=== PATIENT | male | born 1980 | race African-American/Black ===

== ENCOUNTER 2016-12-07 15:17 | Emergency (ER) | payer MEDICAID, OTHER ==
[~2016-12-07] VITALS: Ht 180.3 cm; Wt 149.0 kg
[~2016-12-07 15:17] MED LIST: BUPR100T4 PO; CLON0.1T PO; CYAN1000P IM; DICL1GEL TOPICAL; GLUC4CHW CHEW; LANC30MI; LISI10TA3 PO; LITH300T PO; LURA40 PO; LYRI150C PO; MEDICAL COMPRES1 MIS; METHI10 PO; ONETKIT; ONETTES4; PERC7.5T13 PO; POTA-163 PO; TIZA4CAP3 PO; TOPA50TA7 PO; TRAZ100T6 PO; ZOLO100T PO
[2016-12-07 15:21] VITALS: BP 157/76; PULSE 72; RESP 15; TEMP 99.3; O2SAT 97
--- NOTE | 2016-12-07 16:16 | PD ---
HPI Chief Complaint: Pain: Acute or Chronic Time Seen by Provider: 16:00 Travel History International Travel<30 days: No Contact w/Intl Traveler<30days: No Traveled to known affect area: No History of Present Illness HPI 36-year-old male with chief complaint of right-sided sciatica pain X 7 days. Patient is currently in pain management. He reports he ran out of his Percocet approximately one weeks ago. He reports the pain is similar to his chronic pain. He is here for pain control. He reports the pain is chronic, starting in the right hip radiating down the leg. No aggravating or alleviating factors. Severity 10/29. He denies incontinence, fever chills, numbness/ weakness/tingling in the extremity. PFSH Past Medical History Arthritis: Yes Asthma: Yes Autoimmune Disease: No Blood Disorders: No Bipolar Disorder: Yes Anxiety: Yes Depression: Yes Heart Rhythm Problems: No Cancer: No Cardiac Catheterization: No Cardiovascular Problems: Yes (HEART MURMUR) Diminished Hearing: No Endocrine: Yes (HYPOGLYCEMIA) Fibromyalgia: Yes Gastrointestinal Disorders: Yes GERD: Yes Genitourinary: No Headaches: Yes Hypertension: Yes Musculoskeletal: Yes (FIBROMYALGIA, sees pain management) Neurologic: Yes Psychiatric: Yes (PTSD) Respiratory: Yes Immunizations Current: No Migraines: Yes Schizophrenia: Yes Seizures: No Sleep Apnea: Yes Ulcer: Yes Past Surgical History Abdominal Surgery: Yes (GASTRIC SLEEVE 04/03) Cholecystectomy: Yes Coronary Artery Bypass Graft: No Oral Surgery: Yes (T&A) Tonsillectomy: Yes Other Surgery: Yes (gastric bypass) Social History Alcohol Use: Yes ("EVERY COUPLE MONTHS") Tobacco Use: No Substance Use: No Allergies-Medications (Allergen,Severity, Reaction): Coded Allergies: lactose (Unverified Adverse Reaction, Unknown, Constipation, 12/07/16) Per patient. Reported Meds & Prescriptions Reported Meds & Active Scripts Active Lyrica (Pregabalin) 150 Mg Cap 150 Mg PO TID Methimazole 10 Mg Tab 10 Mg PO TID Cyanocobalamin Inj (Cyanocobalamin) 1,000 Mcg/Ml Inj 1,000 Mcg IM Q30D Reported Percocet (Oxycodone-Acetaminophen) 7.5-325 mg Tab 1 Tab PO BID PRN Trazodone (Trazodone HCl) 100 Mg Tablet 100 Mg PO DAILY Clonidine (Clonidine HCl) 0.1 Mg Tab 0.1 Mg PO DAILY Rx'ed by Psychiatry Review of Systems Except as stated in HPI: all other systems reviewed are Neg Physical Exam Narrative GENERAL: Well-nourished, well-developed patient. SKIN: Focused skin assessment warm/dry. HEAD: Normocephalic. EYES: No scleral icterus. No injection or drainage. NECK: Supple, trachea midline. No JVD or lymphadenopathy. CARDIOVASCULAR: Regular rate and rhythm without murmurs, gallops, or rubs. RESPIRATORY: Breath sounds equal bilaterally. No accessory muscle use. GASTROINTESTINAL: Abdomen soft, non-tender, nondistended. MUSCULOSKELETAL: No cyanosis, or edema. 5 out of 5 strength in lower extremities. Normal sensation. Dorsiflex and plantar flex intact. BACK: Nontender without obvious deformity. No CVA tenderness. Negative straight leg raise Data Data Last Documented VS Vital Signs Date Time Temp Pulse Resp B/P Pulse Ox O2 Delivery O2 Flow Rate FiO2 12/07/16 15:21 99.3 72 15 157/76 97 MDM Medical Decision Making Medical Screen Exam Complete: Yes Emergency Medical Condition: Yes Differential Diagnosis Sciatica, lumbar radiculopathy, acute on chronic pain Narrative Course 36-year-old male with chief complaint of right-sided sciatica pain X 7 days. Patient is currently in pain management. He reports he ran out of his Percocet approximately one weeks ago. He reports the pain is similar to his chronic pain. He is here for pain control. He denies incontinence, fever chills, numbness/weakness/tingling in the extremity. Patient's physical exam is reassuring. He will be given a shot of Toradol. Instructed to follow-up management doctor. Diagnosis Primary Impression: Sciatic nerve pain Qualified Code: M54.31 - Right sciatic nerve pain Referrals: Pain Management Additional Instructions: Take medications as prescribed. : Follow-up with her pain management clinic. Disposition: 01 DISCHARGE HOME Condition: Stable RodneyTameka ESCAMILLA Dec 07, 2016 16:16
[2016-12-07] MEDS ORDERED: KETOROLAC TROMETHAMINE 60 MG/2 ML (IM) VIAL IM ONE (16:30)
[2017-01-02] MEDS ORDERED: MEDR4PAK PO (10:33)
[2017-01-02] MEDS ORDERED: GABA300C5 PO (10:33)
== END 2016-12-07 16:50 | disposition home or self-care (01) ==
LOC: PHEFT 15:17
DX: M54.31 Sciatica, right side (principal); I10 Essential (primary) hypertension; G47.30 Sleep apnea, unspecified; Z87.39 Personal history of other diseases of the musculoskeletal system and connective tissue; Z87.09 Personal history of other diseases of the respiratory system; Z86.59 Personal history of other mental and behavioral disorders; Z86.79 Personal history of other diseases of the circulatory system; Z86.39 Personal history of other endocrine, nutritional and metabolic disease; Z87.19 Personal history of other diseases of the digestive system; Z86.69 Personal history of other diseases of the nervous system and sense organs
CPT/HCPCS: 96372; 99284; J1885

== ENCOUNTER 2016-12-29 11:53 | Observation (INO) | payer MEDICAID, OTHER ==
[~2016-12-29] VITALS: Ht 180.3 cm; Wt 157.4 kg
[~2016-12-29 11:53] MED LIST changes: -BUPR100T4 PO; -DICL1GEL TOPICAL; -GLUC4CHW CHEW; -LANC30MI; -LISI10TA3 PO; -LITH300T PO; -LURA40 PO; -MEDICAL COMPRES1 MIS; -ONETKIT; -ONETTES4; -POTA-163 PO; -TIZA4CAP3 PO; -TOPA50TA7 PO; -ZOLO100T PO
[2016-12-29 12:14] VITALS: BP 141/75; PULSE 67; RESP 14; TEMP 98.1; O2SAT 99
[2016-12-29] MEDS ORDERED: SODIUM CHLORIDE 0.9% FLUSH 10 ML FLUSH IVF PRN (13:00)
[2016-12-29] MEDS ORDERED: ACETAMINOPHEN/HYDROcodone 325 MG/5 MG TAB PO ONE (13:00)
[2016-12-29] MEDS ORDERED: ASPIRIN 81 MG CHEW TAB PO ONE (13:00)
--- NOTE | 2016-12-29 13:06 | PD ---
HPI Chief Complaint: Pain: Acute or Chronic Time Seen by Provider: 12:49 Travel History International Travel<30 days: No Contact w/Intl Traveler<30days: No Traveled to known affect area: No History of Present Illness HPI This patient complains of chest pain. Duration 3 days. Severity is moderate. Location is left in center chest as a pressure and aching. It can last 2 hours and resolved. Nonexertional. Patient has chronic right sided sciatica but no documented cardiac history. He had a negative stress test years ago but nothing recent. He has a morbidly obese hypertensive man who says his mother had heart attack in her 30s. No smoking. No alleviating factors. PFSH Past Medical History Arthritis: Yes Asthma: Yes Autoimmune Disease: No Blood Disorders: No Bipolar Disorder: Yes Anxiety: Yes Depression: Yes Heart Rhythm Problems: No Cancer: No Cardiac Catheterization: No Cardiovascular Problems: Yes (HEART MURMUR) Diminished Hearing: No Endocrine: Yes (HYPOGLYCEMIA) Fibromyalgia: Yes Gastrointestinal Disorders: Yes GERD: Yes Genitourinary: No Headaches: Yes Hypertension: Yes Implanted Vascular Access Dvce: No Musculoskeletal: Yes (FIBROMYALGIA, sees pain management) Neurologic: Yes Psychiatric: Yes (PTSD) Reproductive: No Respiratory: Yes Immunizations Current: No Migraines: Yes Schizophrenia: Yes Seizures: No Sleep Apnea: Yes Ulcer: Yes Influenza Vaccination: No Past Surgical History Abdominal Surgery: Yes (GASTRIC SLEEVE 04/03) Cholecystectomy: Yes Coronary Artery Bypass Graft: No Oral Surgery: Yes (T&A) Tonsillectomy: Yes Other Surgery: Yes (gastric bypass) Family History Family Myocardial Infarction: No Social History Alcohol Use: Yes ("EVERY COUPLE MONTHS") Tobacco Use: No Substance Use: No Allergies-Medications (Allergen,Severity, Reaction): Coded Allergies: lactose (Unverified Adverse Reaction, Unknown, Constipation, 12/07/16) Per patient. Reported Meds & Prescriptions Reported Meds & Active Scripts Active Lyrica (Pregabalin) 150 Mg Cap 150 Mg PO TID Methimazole 10 Mg Tab 10 Mg PO TID Cyanocobalamin Inj (Cyanocobalamin) 1,000 Mcg/Ml Inj 1,000 Mcg IM Q30D Reported Percocet (Oxycodone-Acetaminophen) 7.5-325 mg Tab 1 Tab PO BID PRN Trazodone (Trazodone HCl) 100 Mg Tablet 100 Mg PO DAILY Clonidine (Clonidine HCl) 0.1 Mg Tab 0.1 Mg PO DAILY Rx'ed by Psychiatry Review of Systems General / Constitutional: No: Fever Eyes: No: Visual changes HENT: No: Headaches Cardiovascular: Positive: Chest Pain or Discomfort Respiratory: No: Shortness of Breath Gastrointestinal: No: Abdominal Pain Genitourinary: No: Dysuria Musculoskeletal: Positive: Pain Skin: No Rash Neurologic: No: Weakness Psychiatric: No: Depression Endocrine: No: Polydipsia Hematologic/Lymphatic: No: Easy Bruising Physical Exam Narrative GENERAL: Well-nourished, well-developed patient in no apparent distress. SKIN: Focused skin assessment reveals no rash and nodules. Skin is Warm and dry. HEAD: Atraumatic. Normocephalic. EYES: Pupils equal and round. No scleral icterus. No injection or drainage. ENT: No nasal bleeding or discharge. Mucous membranes pink and moist. NECK: Trachea midline. No JVD. CARDIOVASCULAR: Regular rate and rhythm. No murmur appreciated. RESPIRATORY: No accessory muscle use. Clear to auscultation. Breath sounds equal bilaterally. GASTROINTESTINAL: Abdomen soft, morbidly obese non-tender, nondistended. Hepatic and splenic margins not palpable. MUSCULOSKELETAL: No obvious deformities. No clubbing. No cyanosis. No edema. Nontender chest wall NEUROLOGICAL: Awake and alert. No obvious cranial nerve deficits. Motor grossly within normal limits. Normal speech. PSYCHIATRIC: Appropriate mood and affect; insight and judgment normal. Data Data Last Documented VS Vital Signs Date Time Temp Pulse Resp B/P (MAP) Pulse Ox O2 Delivery O2 Flow Rate FiO2 12/29/16 12:14 98.1 67 14 141/75 (97) 99 Room Air Orders Orders Electrocardiogram (12/29/16 13:00) Basic Metabolic Panel (Bmp) (12/29/16 13:00) Ckmb (Isoenzyme) Profile (12/29/16 13:00) Complete Blood Count With Diff (12/29/16 13:00) Prothrombin Time / Inr (Pt) (12/29/16 13:00) Act Partial Throm Time (Ptt) (12/29/16 13:00) Troponin I (12/29/16 13:00) Chest, Single Ap (12/29/16 13:00) Ecg Monitoring (12/29/16 13:00) Iv Access Insert/Monitor (12/29/16 13:00) Oximetry (12/29/16 13:00) Aspirin Chew (Aspirin Chew) (12/29/16 13:00) Sodium Chloride 0.9% Flush (Ns Flush) (12/29/16 13:00) Acetamin-Hydrocod 325-5 Mg (Cody 5-325 (12/29/16 13:00) CKMB (12/29/16 14:00) CKMB% (12/29/16 14:00) Admit Order (Ed Use Only) (12/29/16 14:34) Labs Laboratory Tests Test 12/29/16 13:35 12/29/16 14:00 White Blood Count 7.8 TH/MM3 Red Blood Count 4.68 MIL/MM3 Hemoglobin 12.9 GM/DL Hematocrit 40.1 % Mean Corpuscular Volume 85.6 FL Mean Corpuscular Hemoglobin 27.5 PG Mean Corpuscular Hemoglobin Concent 32.1 % Red Cell Distribution Width 14.5 % Platelet Count 333 TH/MM3 Mean Platelet Volume 8.1 FL Neutrophils (%) (Auto) 58.4 % Lymphocytes (%) (Auto) 28.1 % Monocytes (%) (Auto) 8.3 % Eosinophils (%) (Auto) 1.4 % Basophils (%) (Auto) 3.8 % Neutrophils # (Auto) 4.6 TH/MM3 Lymphocytes # (Auto) 2.2 TH/MM3 Monocytes # (Auto) 0.6 TH/MM3 Eosinophils # (Auto) 0.1 TH/MM3 Basophils # (Auto) 0.3 TH/MM3 CBC Comment DIFF FINAL Differential Comment Prothrombin Time 10.6 SEC Prothromb Time International Ratio 1.0 RATIO Activated Partial Thromboplast Time 23.9 SEC Blood Urea Nitrogen 13 MG/DL Creatinine 0.69 MG/DL Random Glucose 91 MG/DL Calcium Level 8.4 MG/DL Sodium Level 142 MEQ/L Potassium Level 3.5 MEQ/L Chloride Level 107 MEQ/L Carbon Dioxide Level 28.6 MEQ/L Anion Gap 6 MEQ/L Estimat Glomerular Filtration Rate 159 ML/MIN Total Creatine Kinase 189 U/L Creatine Kinase MB 1.2 NG/ML Troponin I LESS THAN 0.02 NG/ML MDM Medical Decision Making Medical Screen Exam Complete: Yes Emergency Medical Condition: Yes Medical Record Reviewed: Yes Differential Diagnosis Differential diagnosis includes NH, angina, pericarditis, pleurisy, GERD, anxiety. Narrative Course I have reviewed the patient's electronic medical record. Patient was here 6 years ago and had a negative myocardial perfusion scan from the chest pain center IV placed I reviewed the EKG shows sinus rhythm without ectopy or ST elevation I reviewed the chest x-ray shows no abnormal findings Extended cardiac monitoring shows sinus rhythm without ectopy CBC is normal Metabolic profile is normal CK is normal Troponin is normal Coagulation studies are normal I gave him an aspirin and a pain pill patient's ER workup is negative. However he is morbidly obese and hypertensive and has family history so I put him into the chest pain center to rule out cardiac cause of his symptoms. I reviewed with hospitalist Dr. Lazo. Diagnosis Primary Impression: Chest pain in adult Additional Impressions: Morbid obesity with BMI of 40.0-44.9, adult Hypertension, goal below 140/90 Admitting Information Admitting Physician Requests: Observation Norris Gracia MD Dec 29, 2016 13:06
--- NOTE | 2016-12-29 13:39 | RADRPT ---
EXAM DATE/TIME: 12/29/2016 13:17 [facility] COMPARISON: CHEST SINGLE AP, July 27, 2013, 16:40. INDICATIONS : Chest pain MEDICAL HISTORY : Hypertension. SURGICAL HISTORY : None. ENCOUNTER: Initial ACUITY: 4 - 6 days PAIN SCORE: 8/10 LOCATION: Bilateral chest FINDINGS: Single AP view of the chest. The lungs are clear. Cardiomediastinal silhouette within normal limits. No evidence of pleural effusion or pneumothorax. Old left clavicle fracture. CONCLUSION: No acute cardiopulmonary disease identified. Irwin Yun MD on December 29, 2016 at 13:35 Board Certified Radiologist. This report was verified electronically.
[2016-12-29 13:44] LABS: AUTOMATED NEUTROPHIL # 4.6 TH/MM3 (1.8-7.7); BASOPHIL # 0.3 TH/MM3 (0-0.2); BASOPHIL % 3.8 % (0.0-2.0); EOSINOPHIL # 0.1 TH/MM3 (0-0.4); EOSINOPHIL % 1.4 % (0.0-4.0); HEMATOCRIT 40.1 % (39.0-51.0); HEMO FLAGS DIFF FINAL; LYMPH % 28.1 % (9.0-44.0); LYMPHOCYTE # 2.2 TH/MM3 (1.0-4.8); MEAN CELL VOLUME 85.6 FL (80.0-100.0); MEAN CORPUSCULAR HEMOGLOBIN 27.5 PG (27.0-34.0); MEAN CORPUSCULAR HGB CONC 32.1 % (32.0-36.0); MONO % 8.3 % (0.0-8.0); NEUT % 58.4 % (16.0-70.0); PLATELET COUNT 333 TH/MM3 (150-450); RED BLOOD COUNT 4.68 MIL/MM3 (4.50-5.90); RED CELL DISTRIBUTION WIDTH 14.5 % (11.6-17.2); WHITE BLOOD COUNT 7.8 TH/MM3 (4.0-11.0)
[2016-12-29 13:58] LABS: APTT (PATIENT) 23.9 SEC (24.3-30.1); PROTHROMBIN TIME - PATIENT 10.6 SEC (9.8-11.6)
[2016-12-29 14:17] LABS: CHLORIDE 107 MEQ/L (98-107); POTASSIUM 3.5 MEQ/L (3.5-5.1); SODIUM (NA) 142 MEQ/L (136-145)
[2016-12-29 14:20] LABS: ANION GAP 6 MEQ/L (5-15); BICARBONATE 28.6 MEQ/L (21.0-32.0)
[2016-12-29 14:21] LABS: BLOOD UREA NITROGEN 13 MG/DL (7-18)
[2016-12-29 14:24] LABS: GLOMERULAR FILTRATION RATE 159 ML/MIN (>89)
[2016-12-29 14:27] LABS: CREATINE KINASE 189 U/L (39-308)
[2016-12-29 14:39] LABS: CKMB 1.2 NG/ML (0.5-3.6)
[2016-12-29] MEDS ORDERED: MORPHINE SULFATE 4 MG/ML INJ IV PRN ×2 (14:45)
[2016-12-29] MEDS ORDERED: SENNOSIDES 8.6 MG TAB PO PRN (14:45)
[2016-12-29] MEDS ORDERED: ONDANSETRON HCL 4 MG/2 ML VIAL IVP PRN (14:45)
[2016-12-29] MEDS ORDERED: NALOXONE HCL 0.4 MG/ML AMP IV PRN (14:45)
[2016-12-29] MEDS ORDERED: LACTULOSE SYRUP 20 GM/30 ML CUP PO PRN (14:45)
[2016-12-29] MEDS ORDERED: SODIUM CHLORIDE 0.9% FLUSH 10 ML FLUSH IV FLUSH PRN (14:45)
[2016-12-29] MEDS ORDERED: NITROGLYCERIN 0.4 MG SL 25 TABS/BTL SL PRN (15:00)
--- NOTE | 2016-12-29 15:05 | HHI.HP ---
[facility] Service [facility] Primary Care Physician Sharon Mcdowell MD Admission Diagnosis chest pain Diagnoses: Travel History International Travel<30 Days: No Contact w/Intl Traveler <30 Da: No Traveled to Known Affected Are: No History of Present Illness Mr. Healy is a 36-year-old male. He has a history of morbid obesity and a family history of myocardial infarction in his mother when she was in her 30s. His mother subsequently of CHF. Today he came in because he's been having sharp central chest pain that lasts for minutes to up to 2 hours. This has been recurrent over the past 3 days. He has concerns for cardiac disease given he has a history of his morbid obesity and his family history. No chest pain is present when seen. Alternative etiologies could be related to his history of gastric bypass surgery or inflammation. He is at the same time having an exacerbation of his right sided sciatica. No other complaints. No cough, no fevers, no diarrhea, no nausea or vomiting. Review of Systems Constitutional: DENIES: Fatigue, Fever, Chills, Change in appetite Endocrine: DENIES: Heat/cold intolerance Eyes: DENIES: Blurred vision, Diplopia, Eye pain Ears, nose, mouth, throat: DENIES: Tinnitus, Hearing loss, Vertigo Respiratory: DENIES: Cough, Wheezing, Sputum production Cardiovascular: COMPLAINS OF: Chest pain, DENIES: Palpitations, Syncope Gastrointestinal: DENIES: Abdominal pain, Black stools, Bloody stools Musculoskeletal: DENIES: Joint pain, Muscle aches, Stiffness Integumentary: DENIES: Abnormal pigmentation, Nail changes, Rash Hematologic/lymphatic: DENIES: Bruising Immunologic/allergic: DENIES: Eczema Neurologic: DENIES: Abnormal gait, Headache, Paresthesias Psychiatric: DENIES: Anxiety, Confusion, Mood changes, Hallucinations Past Family Social History Past Medical History Osteoarthritis Asthma Bipolar disorder Schizophrenia PTSD Morbid obesity Angina Fibromyalgia Headaches Sleep apnea History of gastric ulcer Hypertension Past Surgical History Cholecystectomy Tonsillectomy Gastric Sleeve/bypass Reported Medications Reported Meds & Active Scripts Active Lyrica (Pregabalin) 150 Mg Cap 150 Mg PO TID Methimazole 10 Mg Tab 10 Mg PO TID Cyanocobalamin Inj (Cyanocobalamin) 1,000 Mcg/Ml Inj 1,000 Mcg IM Q30D Reported Percocet (Oxycodone-Acetaminophen) 7.5-325 mg Tab 1 Tab PO BID PRN Trazodone (Trazodone HCl) 100 Mg Tablet 100 Mg PO DAILY Clonidine (Clonidine HCl) 0.1 Mg Tab 0.1 Mg PO DAILY Rx'ed by Psychiatry Allergies: Coded Allergies: lactose (Unverified Adverse Reaction, Unknown, Constipation, 12/07/16) Per patient. Family History Myocardial infarction in mother in her 30s Social History Occasional alcohol No smoking No illicit drug use Physical Exam Vital Signs Vital Signs Date Time Temp Pulse Resp B/P (MAP) Pulse Ox O2 Delivery O2 Flow Rate FiO2 12/29/16 14:00 16 12/29/16 12:14 98.1 67 14 141/75 (97) 99 Room Air Physical Exam GENERAL: NAD, A&Ox3, severe obesity HEAD: Normocephalic. NECK: Supple, trachea midline. No lymphadenopathy. EYES: No scleral icterus. No injection or drainage. CARDIOVASCULAR: Regular rate and rhythm without murmurs, gallops, or rubs. RESPIRATORY: Breath sounds equal bilaterally. No accessory muscle use. GASTROINTESTINAL: Abdomen soft, non-tender, nondistended. MUSCULOSKELETAL: No cyanosis, or edema. SKIN: Warm and dry. NEURO: No focal neurological deficitis. Laboratory Laboratory Tests Test 12/29/16 13:35 12/29/16 14:00 White Blood Count 7.8 Red Blood Count 4.68 Hemoglobin 12.9 Hematocrit 40.1 Mean Corpuscular Volume 85.6 Mean Corpuscular Hemoglobin 27.5 Mean Corpuscular Hemoglobin Concent 32.1 Red Cell Distribution Width 14.5 Platelet Count 333 Mean Platelet Volume 8.1 Neutrophils (%) (Auto) 58.4 Lymphocytes (%) (Auto) 28.1 Monocytes (%) (Auto) 8.3 Eosinophils (%) (Auto) 1.4 Basophils (%) (Auto) 3.8 Neutrophils # (Auto) 4.6 Lymphocytes # (Auto) 2.2 Monocytes # (Auto) 0.6 Eosinophils # (Auto) 0.1 Basophils # (Auto) 0.3 CBC Comment DIFF FINAL Differential Comment Prothrombin Time 10.6 Prothromb Time International Ratio 1.0 Activated Partial Thromboplast Time 23.9 Blood Urea Nitrogen 13 Creatinine 0.69 Random Glucose 91 Calcium Level 8.4 Sodium Level 142 Potassium Level 3.5 Chloride Level 107 Carbon Dioxide Level 28.6 Anion Gap 6 Estimat Glomerular Filtration Rate 159 Total Creatine Kinase 189 Creatine Kinase MB 1.2 Troponin I LESS THAN 0.02 Result Diagram: 12/29/16 1335 12/29/16 1400 Imaging Last Impressions Chest X-Ray 12/29/16 1300 Signed Impressions: Service Date/Time: Thursday, December 29, 2016 13:17 - CONCLUSION: No acute cardiopulmonary disease identified. MD Dao Higginbotham VTE Risk Assessment Caprinana VTE Risk Assessment: No/Low Risk (score <= 1) Caprini Risk Assessment Model Point Value = 1 Point Value = 2 Point Value = 3 Point Value = 5 Age 41-60 Minor surgery BMI > 25 kg/m2 Swollen legs Varicose veins or History of unexplained or recurrent spontaneous Oral contraceptives or hormone replacement Sepsis (< 1 month) Serious lung disease, including pneumonia (< 1 month) Abnormal pulmonary function Acute myocardial infarction Congestive heart failure (< 1 month) History of inflammatory bowel disease Medical patient at bed rest Age 61-74 Arthroscopic surgery Major open surgery (> 45 min) Laparoscopic surgery (> 45 min) Malignancy Confined to bed (> 72 hours) Immobilizing plaster cast Central venous access Age >= 75 History of VTE Family history of VTE Factor V Leiden Prothrombin [id number] Lupus anticoagulant Anticardiolipin antibodies Elevated serum homocysteine Heparin-induced thrombocytopenia Other congenital or acquired thrombophilia Stroke (< 1 month) Elective arthroplasty Hip, pelvis, or leg fracture Acute spinal cord injury (< 1 month) Prophylaxis Regimen Total Risk Factor Score Risk Level Prophylaxis Regimen 0-1 Low Early ambulation 2 Moderate Order ONE of the following: *Sequential Compression Device (SCD) *Heparin 5000 units SQ BID 3-4 Higher Order ONE of the following medications: *Heparin 5000 units SQ TID *Enoxaparin/Lovenox 40 mg SQ daily (WT < 150 kg, CrCl > 30 mL/min) *Enoxaparin/Lovenox 30 mg SQ daily (WT < 150 kg, CrCl > 10-29 mL/min) *Enoxaparin/Lovenox 30 mg SQ BID (WT < 150 kg, CrCl > 30 mL/min) AND/OR *Sequential Compression Device (SCD) 5 or more Highest Order ONE of the following medications: *Heparin 5000 units SQ TID (Preferred with Epidurals) *Enoxaparin/Lovenox 40 mg SQ daily (WT < 150 kg, CrCl > 30 mL/min) *Enoxaparin/Lovenox 30 mg SQ daily (WT < 150 kg, CrCl > 10-29 mL/min) *Enoxaparin/Lovenox 30 mg SQ BID (WT < 150 kg, CrCl > 30 mL/min) AND *Sequential Compression Device (SCD) Assessment and Plan Problem List: (1) Bariatric surgery status ICD Code: Z98.84 - Status post bariatric surgery Status: Acute (2) H/O gastric bypass ICD Code: Z98.890 - Other specified postprocedural states Status: Acute (3) History of bariatric surgery ICD Code: Z98.84 - History of bariatric surgery Status: Chronic (4) Morbid obesity with BMI of 40.0-44.9, adult ICD Code: E66.01 - Morbid (severe) obesity due to excess calories; Z68.41 - Body mass index (BMI) 40.0-44.9, adult Status: Chronic (5) Bipolar disorder with moderate depression ICD Code: F31.32 - Bipolar disorder, current episode depressed, moderate Status: Acute (6) Hypertension, goal below 140/90 ICD Code: I10 - Essential (primary) hypertension Status: Acute (7) Chest pain in adult ICD Code: R07.9 - Chest pain, unspecified Status: Acute (8) Hyperthyroidism ICD Code: E05.90 - Thyrotoxicosis, unspecified without thyrotoxic crisis or storm Status: Acute (9) Peripheral neuropathy ICD Code: G62.9 - Polyneuropathy, unspecified Status: Acute Assessment and Plan Assessment and plan 36-year-old male admitted with chest pain Chest pain Evaluate for ACS Follow cardiac enzymes Aspirin daily When necessary oxygen When necessary morphine for pain. When necessary nitroglycerin Follow on telemetry Hypertension Continue baseline blood pressure treatments Follow blood pressures Adjust baseline treatments if needed Hyperthyroidism Continue baseline treatment Follow as an outpatient No change to baseline treatment Peripheral neuropathy Continue Lyrica Follow clinically Sciatica exacerbation Patient is not a candidate for NSAIDs Continue baseline Percocet for pain A short course of Steroids could be considered if cardiac workup is negative Osteoarthritis Asthma Bipolar disorder Schizophrenia PTSD Morbid obesity Fibromyalgia Headaches Sleep apnea History of gastric ulcer No exacerbations of these chronic conditions Follow clinically DVT prophylaxis Lovenox SCDs Andi Lazo MD Dec 29, 2016 15:05
[2016-12-29 15:26] VITALS: RESP 18; O2SAT 95
[2016-12-29 15:31] VITALS: BP 159/77; PULSE 60; RESP 16; O2SAT 100
[2016-12-29 16:00] VITALS: BP 137/84; PULSE 51; RESP 18; TEMP 98.6; O2SAT 96
[2016-12-29] MEDS ORDERED: ENOXAPARIN SODIUM 40 MG/0.4 ML SYRINGE SQ SCH (16:00)
[2016-12-29] MEDS: oxyCODONE/ACETAMINOPHEN 7.5 MG/325 MG TAB PO PRN (16:30)
[2016-12-29] MEDS ORDERED: METHIMAZOLE 10 MG TAB PO SCH (18:00)
[2016-12-29] MEDS: PREGABALIN 75 MG CAP PO SCH (18:06)
[2016-12-29] MEDS: METHIMAZOLE 5 MG TAB PO SCH (18:07)
[2016-12-29 20:00] VITALS: BP 139/82; PULSE 77; PULSE 89; RESP 20; TEMP 97.6; O2SAT 99
[2016-12-29] MEDS ORDERED: ATORVASTATIN 10 MG TAB PO SCH (21:00)
[2016-12-29] MEDS: SODIUM CHLORIDE 0.9% FLUSH 10 ML FLUSH IV FLUSH SCH (21:30)
[2016-12-30] VITALS: BP 138/84; PULSE 64; RESP 20; TEMP 97.1; O2SAT 98
[2016-12-30 04:00] VITALS: BP 138/93; PULSE 68; RESP 20; TEMP 97.7; O2SAT 99
[2016-12-30] MEDS: oxyCODONE/ACETAMINOPHEN 7.5 MG/325 MG TAB PO PRN (04:32)
[2016-12-30 08:00] VITALS: BP 131/93; PULSE 59; RESP 20; TEMP 97.5; O2SAT 96
[2016-12-30 08:07] LABS: AUTOMATED NEUTROPHIL # 3.6 TH/MM3 (1.8-7.7); BASOPHIL % 0.4 % (0.0-2.0); EOSINOPHIL # 0.1 TH/MM3 (0-0.4); EOSINOPHIL % 1.6 % (0.0-4.0); HEMATOCRIT 34.7 % (39.0-51.0); HEMO FLAGS DIFF FINAL; LYMPH % 37.7 % (9.0-44.0); LYMPHOCYTE # 2.5 TH/MM3 (1.0-4.8); MEAN CELL VOLUME 86.4 FL (80.0-100.0); MEAN CORPUSCULAR HEMOGLOBIN 28.1 PG (27.0-34.0); MEAN CORPUSCULAR HGB CONC 32.5 % (32.0-36.0); NEUT % 53.3 % (16.0-70.0); PLATELET COUNT 277 TH/MM3 (150-450); RED BLOOD COUNT 4.01 MIL/MM3 (4.50-5.90); WHITE BLOOD COUNT 6.7 TH/MM3 (4.0-11.0)
[2016-12-30 08:13] LABS: CHLORIDE 108 MEQ/L (98-107); POTASSIUM 3.4 MEQ/L (3.5-5.1); SODIUM (NA) 143 MEQ/L (136-145)
[2016-12-30 08:17] LABS: ANION GAP 6 MEQ/L (5-15); BICARBONATE 28.7 MEQ/L (21.0-32.0)
[2016-12-30 08:18] LABS: BLOOD UREA NITROGEN 12 MG/DL (7-18)
[2016-12-30 08:20] LABS: ALT (GPT) 18 U/L (12-78); AST (GOT) 11 U/L (15-37)
[2016-12-30 08:21] LABS: GLOMERULAR FILTRATION RATE 198 ML/MIN (>89)
[2016-12-30 08:22] LABS: TOTAL BILIRUBIN ADULT 0.5 MG/DL (0.2-1.0)
[2016-12-30 08:23] LABS: ALKALINE PHOSPHATASE 59 U/L (45-117)
[2016-12-30] MEDS: SODIUM CHLORIDE 0.9% FLUSH 10 ML FLUSH IV FLUSH SCH (08:45)
[2016-12-30] MEDS: PREGABALIN 75 MG CAP PO SCH (08:45)
[2016-12-30] MEDS ORDERED: traZODone HCL 100 MG TAB PO SCH (09:00)
[2016-12-30] MEDS ORDERED: cloNIDine HCL 0.1 MG TAB PO SCH (09:00)
[2016-12-30] MEDS: METHIMAZOLE 5 MG TAB PO SCH (09:24)
--- NOTE | 2016-12-30 10:04 | EKG ---
Date Performed: 12/29/2016 Time Performed: 18:04:46 PTAGE: 36 years EKG: Sinus rhythm ABNORMAL ECG PREVIOUS TRACING : 12/29/2016 13.12 Since prior tracing, sinus rate has increased slightly. DOCTOR: Hakeem Harris Interpretating Date/Time 12/30/2016 10:02:54
--- NOTE | 2016-12-30 10:04 | EKG ---
Date Performed: 12/29/2016 Time Performed: 13:12:29 PTAGE: 36 years EKG: SINUS BRADYCARDIA POSSIBLE LEFT VENTRICULAR HYPERTROPHY ABNORMAL ECG PREVIOUS TRACING : 10/09/2013 02.19 Since prior tracing, previously seen precordial T-wave segovia ges have improved. DOCTOR: Hakeem Harris Interpretating Date/Time 12/30/2016 10:02:34
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
--- NOTE | 2016-12-30 17:56 | EKG ---
Date Performed: 12/29/2016 Time Performed: 23:57:46 PTAGE: 36 years EKG: Sinus rhythm NORMAL ECG PREVIOUS TRACING : 12/29/2016 18.04 DOCTOR: Hakeem Harris Interpretating Date/Time 12/30/2016 17:56:09
[2016-12-31] MEDS ORDERED: ASPIRIN 325 MG TAB PO SCH (09:00)
[2017-01-02] MEDS ORDERED: MEDR4PAK PO (10:33)
[2017-01-02] MEDS ORDERED: GABA300C5 PO (10:33)
[2017-01-04] MEDS ORDERED: CYANOCOBALAMIN 1000 MCG/ML VIAL IM SCH (09:00)
== END 2016-12-30 10:59 | disposition home or self-care (01) ==
LOC: PHED 11:53 → PHEDA 14:36 → PH3B 15:46
PROVIDERS: ADMIT Hospitalist; ATTEND Hospitalist
DX: R07.9 Chest pain, unspecified (principal); I10 Essential (primary) hypertension; M54.31 Sciatica, right side; F31.32 Bipolar disorder, current episode depressed, moderate; G47.30 Sleep apnea, unspecified; M79.7 Fibromyalgia; R94.31 Abnormal electrocardiogram [ECG] [EKG]; E66.01 Morbid (severe) obesity due to excess calories; G62.9 Polyneuropathy, unspecified; E05.90 Thyrotoxicosis, unspecified without thyrotoxic crisis or storm; J45.909 Unspecified asthma, uncomplicated; Z68.41 Body mass index [BMI] 40.0-44.9, adult; Z98.84 Bariatric surgery status
CPT/HCPCS: 71010; 80048; 80053; 82550; 82552; 84484; 85025; 85610; 85730; 93005; 96372; 99285; G0378; J1650

== ENCOUNTER 2017-01-30 10:49 | Emergency (ER) | payer SELFPAY ==
[~2017-01-30] VITALS: Ht 180.3 cm; Wt 154.5 kg
[~2017-01-30 10:49] MED LIST changes: +GABA300C5 PO
[2017-01-30 10:57] VITALS: BP 141/65; PULSE 67; RESP 16; TEMP 98.7; O2SAT 99
[2017-01-30] MEDS ORDERED: SODIUM CHLOR 0.9% 1000 ML INJ 1,000 ML IV SCH (11:29)
[2017-01-30] MEDS ORDERED: ALUMINUM/MAGNESIUM/SIMETH 30 ML CUP PO ONE (11:30)
[2017-01-30] MEDS ORDERED: ONDANSETRON HCL 4 MG/2 ML VIAL IV ONE (11:30)
[2017-01-30] MEDS ORDERED: MORPHINE SULFATE 4 MG/ML INJ IV PUSH ONE (11:30)
[2017-01-30] MEDS ORDERED: LIDOCAINE VISCOUS 2% SOLN 15 ML UDC PO ONE (11:30)
[2017-01-30] MEDS ORDERED: SODIUM CHLORIDE 0.9% FLUSH 10 ML FLUSH IV FLUSH PRN (11:30)
--- NOTE | 2017-01-30 11:40 | PD ---
HPI Chief Complaint: GI Complaint Time Seen by Provider: 11:14 Travel History International Travel<30 days: No Contact w/Intl Traveler<30days: No Traveled to known affect area: No History of Present Illness HPI This is a 36-year-old male who presents to the emergency department with epigastric abdominal discomfort, constant, moderate severity, that started yesterday associated with multiple episodes of vomiting, inability to keep anything down and loose stools. He denies any fevers or chills. He states had symptoms intermittently like this in the past. He's been told may be of gastritis. He had a gastric sleeve bariatric surgery in 2011 but hasn't followed up with his surgeon since then because the office closed. He does have a primary care physician but currently doesn't have any insurance. PFSH Past Medical History Arthritis: Yes Asthma: Yes (as a child) Autoimmune Disease: No Blood Disorders: No Bipolar Disorder: Yes Anxiety: Yes Depression: Yes Heart Rhythm Problems: No Cancer: No Cardiac Catheterization: No Cardiovascular Problems: Yes (HEART MURMUR) High Cholesterol: No Chest Pain: Yes Congestive Heart Failure: No COPD: No Cerebrovascular Accident: No Diminished Hearing: No Endocrine: Yes (HYPOGLYCEMIA) Fibromyalgia: Yes Gastrointestinal Disorders: Yes GERD: Yes Genitourinary: Yes Headaches: Yes Hiatal Hernia: No Hypertension: Yes Immune Disorder: No Implanted Vascular Access Dvce: No Kidney Stones: Yes Musculoskeletal: Yes (FIBROMYALGIA, sees pain management) Neurologic: Yes Psychiatric: Yes (PTSD) Reproductive: No Respiratory: Yes Immunizations Current: No Migraines: No Schizophrenia: Yes Seizures: No Sleep Apnea: Yes Ulcer: No ?: Not Past Surgical History Abdominal Surgery: Yes (GASTRIC SLEEVE 04/03, gallbadder removed 2006) Cardiac Surgery: No Cholecystectomy: Yes Coronary Artery Bypass Graft: No Ear Surgery: No Endocrine Surgery: No Eye Surgery: No Gynecologic Surgery: No Oral Surgery: Yes (T&A) Thoracic Surgery: No Tonsillectomy: Yes Other Surgery: Yes (gastric bypass) Social History Alcohol Use: Yes ("EVERY COUPLE MONTHS") Tobacco Use: No Substance Use: No Allergies-Medications (Allergen,Severity, Reaction): Coded Allergies: lactose (Unverified Adverse Reaction, Unknown, Constipation, 01/30/17) Per patient. Reported Meds & Prescriptions Reported Meds & Active Scripts Active Review of Systems Except as stated in HPI: all other systems reviewed are Neg Physical Exam Narrative GENERAL:Well appearing, no acute distress SKIN: Focused skin assessment warm and dry. HEAD: Atraumatic. Normocephalic. EYES: Pupils equal and round. No injection or drainage. ENT: Moist mucous membranes NECK: Trachea midline. CARDIOVASCULAR: Regular rate and rhythm. No murmur appreciated. RESPIRATORY: Clear to auscultation. Breath sounds equal bilaterally. GASTROINTESTINAL: Abdomen soft, tender to palpation in the epigastrium with no rebound or guarding. MUSCULOSKELETAL: No obvious deformities. NEUROLOGICAL: Awake and alert. No obvious cranial nerve deficits. Moving all extremities. PSYCHIATRIC: Appropriate mood and affect; insight and judgment normal. Data Data Last Documented VS Vital Signs Date Time Temp Pulse Resp B/P (MAP) Pulse Ox O2 Delivery O2 Flow Rate FiO2 01/30/17 13:55 70 18 149/88 (108) 98 Room Air 01/30/17 10:57 98.7 Orders Orders Complete Blood Count With Diff (01/30/17 11:29) Comprehensive Metabolic Panel (01/30/17 11:29) Lipase (01/30/17 11:29) Urinalysis - C+S If Indicated (01/30/17 11:29) Iv Access Insert/Monitor (01/30/17 11:29) Ecg Monitoring (01/30/17 11:29) Oximetry (01/30/17 11:29) Morphine Inj (Morphine Inj) (01/30/17 11:30) Sodium Chlor 0.9% 1000 Ml Inj (Ns 1000 M (01/30/17 11:29) Sodium Chloride 0.9% Flush (Ns Flush) (01/30/17 11:30) Al-Mag Hy-Si 40-40-4 Mg/Ml Liq (Mag-Al P (01/30/17 11:30) Lidocaine 2% Viscous (Xylocaine 2% Visco (01/30/17 11:30) Ondansetron Inj (Zofran Inj) (01/30/17 11:30) Ct Abd/Pel W Iv Contrast(Rout) (01/30/17 ) Iohexol 350 Inj (Omnipaque 350 Inj) (01/30/17 13:40) Labs Laboratory Tests Test 01/30/17 11:45 01/30/17 12:40 White Blood Count 5.8 TH/MM3 Red Blood Count 4.97 MIL/MM3 Hemoglobin 13.9 GM/DL Hematocrit 43.1 % Mean Corpuscular Volume 86.8 FL Mean Corpuscular Hemoglobin 27.9 PG Mean Corpuscular Hemoglobin Concent 32.1 % Red Cell Distribution Width 13.6 % Platelet Count 303 TH/MM3 Mean Platelet Volume 8.3 FL Neutrophils (%) (Auto) 72.3 % Lymphocytes (%) (Auto) 19.7 % Monocytes (%) (Auto) 4.1 % Eosinophils (%) (Auto) 0.2 % Basophils (%) (Auto) 3.7 % Neutrophils # (Auto) 4.3 TH/MM3 Lymphocytes # (Auto) 1.1 TH/MM3 Monocytes # (Auto) 0.2 TH/MM3 Eosinophils # (Auto) 0.0 TH/MM3 Basophils # (Auto) 0.2 TH/MM3 CBC Comment DIFF FINAL Differential Comment Blood Urea Nitrogen 8 MG/DL Creatinine 0.74 MG/DL Random Glucose 97 MG/DL Total Protein 7.9 GM/DL Albumin 3.7 GM/DL Calcium Level 9.4 MG/DL Alkaline Phosphatase 78 U/L Aspartate Amino Transf (AST/SGOT) 10 U/L Alanine Aminotransferase (ALT/SGPT) 19 U/L Total Bilirubin 0.8 MG/DL Sodium Level 140 MEQ/L Potassium Level 3.7 MEQ/L Chloride Level 106 MEQ/L Carbon Dioxide Level 25.3 MEQ/L Anion Gap 9 MEQ/L Estimat Glomerular Filtration Rate 147 ML/MIN Lipase 95 U/L Urine Collection Type CLEAN CATCH Urine Color YELLOW Urine Turbidity CLEAR Urine pH 6.5 Urine Specific Mcdonald 1.014 Urine Protein NEG mg/dL Urine Glucose (UA) NEG mg/dL Urine Ketones 15 mg/dL Urine Occult Blood NEG Urine Nitrite NEG Urine Bilirubin NEG Urine Leukocyte Esterase NEG Urine RBC 0-3 /hpf Urine Squamous Epithelial Cells 0-5 /hpf Microscopic Urinalysis Comment CULT NOT INDICATED Urine Collection Time 12:40 MDM Medical Decision Making Medical Screen Exam Complete: Yes Emergency Medical Condition: Yes Interpretation(s) afebrile, no tachycardia, normotensive no leukocytosis electrolytes within normal limits lipase normal Last 24 hours Impressions Abdomen/Pelvis CT 01/30/17 0000 Signed Impressions: Service Date/Time: Monday, January 30, 2017 13:34 - CONCLUSION: Previous gastric sleeve, normal bowel gas pattern. There are no inflammatory changes. I don't see an etiology for the pain. Jimi Bahena MD FACR Differential Diagnosis Gastritis, gastroenteritis, ulcer, gastric outlet obstruction, perforation Narrative Course This is a 36-year-old male who presents to the emergency department with abdominal pain. He has a history of a gastric sleeve. Labs are. CT abdomen and pelvis were obtained which were unremarkable. Patient feels much better after antiemetics and pain control. He will be discharged home and I suspect he has gastritis or an ulcer. He was advised to follow-up with GI as I think he would benefit from an endoscopy. Diagnosis Primary Impression: Abdominal pain Qualified Codes: R10.13 - Epigastric pain Referrals: [facility] Patient Instructions: General Instructions Additional Instructions: If you develop severe or worsening abdominal pain, fever>100.4, persistent vomiting or inability to eat or drink return to the emergency department immediately. Follow up with your primary care physician in 1-2 days for a check-up. Med/Other Pt SpecificInfo: No Change to Meds Scripts No Active Prescriptions or Reported Meds Disposition: 01 DISCHARGE HOME Condition: Stable Madeleine Peraza MD Jan 30, 2017 11:40
[2017-01-30 11:53] LABS: AUTOMATED NEUTROPHIL # 4.3 TH/MM3 (1.8-7.7); BASOPHIL # 0.2 TH/MM3 (0-0.2); BASOPHIL % 3.7 % (0.0-2.0); EOSINOPHIL % 0.2 % (0.0-4.0); HEMATOCRIT 43.1 % (39.0-51.0); LYMPH % 19.7 % (9.0-44.0); LYMPHOCYTE # 1.1 TH/MM3 (1.0-4.8); MEAN CELL VOLUME 86.8 FL (80.0-100.0); MEAN CORPUSCULAR HEMOGLOBIN 27.9 PG (27.0-34.0); MEAN CORPUSCULAR HGB CONC 32.1 % (32.0-36.0); MONO % 4.1 % (0.0-8.0); NEUT % 72.3 % (16.0-70.0); PLATELET COUNT 303 TH/MM3 (150-450); RED BLOOD COUNT 4.97 MIL/MM3 (4.50-5.90); RED CELL DISTRIBUTION WIDTH 13.6 % (11.6-17.2); WHITE BLOOD COUNT 5.8 TH/MM3 (4.0-11.0)
[2017-01-30 11:55] LABS: HEMO FLAGS DIFF FINAL
[2017-01-30 11:58] VITALS: BP 118/70; PULSE 66; RESP 18; O2SAT 99
[2017-01-30 12:07] LABS: CHLORIDE 106 MEQ/L (98-107); POTASSIUM 3.7 MEQ/L (3.5-5.1); SODIUM (NA) 140 MEQ/L (136-145)
[2017-01-30 12:13] LABS: ANION GAP 9 MEQ/L (5-15); BICARBONATE 25.3 MEQ/L (21.0-32.0); BLOOD UREA NITROGEN 8 MG/DL (7-18)
[2017-01-30 12:16] LABS: ALT (GPT) 19 U/L (12-78); AST (GOT) 10 U/L (15-37); GLOMERULAR FILTRATION RATE 147 ML/MIN (>89)
[2017-01-30 12:17] LABS: TOTAL BILIRUBIN ADULT 0.8 MG/DL (0.2-1.0)
[2017-01-30 12:18] LABS: ALKALINE PHOSPHATASE 78 U/L (45-117)
[2017-01-30 12:48] LABS: BLOOD, URINE NEG (NEG); GLUCOSE,URINE NEG (NEG); KETONE, URINE 15 mg/dL (NEG); NITRITE,URINE NEG (NEG); PH, URINE 6.5 (5.0-8.5)
[2017-01-30 12:58] LABS: METHOD OF COLLECTION CLEAN CATCH
[2017-01-30 12:59] LABS: COMMENT (UR) CULT NOT INDICATED; CULTURE IF INDICATED CULT NOT INDICATED; RBC, URINE 0-3 /hpf (0-3); SQUAMOUS EPITHELIAL CELL URINE 0-5 /hpf (0-5); URINE COLOR YELLOW (YELLW/STRAW)
[2017-01-30] MEDS ORDERED: IOHEXOL 350 MG/ML 10 ML VIAL (for RAD DIAG) IVCONTRAST ONE (13:40)
[2017-01-30 13:55] VITALS: BP 149/88; PULSE 70; RESP 18; O2SAT 98
--- NOTE | 2017-01-30 13:58 | RADRPT ---
EXAM DATE/TIME: 01/30/2017 13:34 [facility] COMPARISON: CT ABDOMEN & PELVIS W CONTRAST, September 12, 2013, 2:26. INDICATIONS : Epigastric pain. Nausea, vomiting and diarrhea. IV CONTRAST: 90 cc Omnipaque 350 (iohexol) IV ORAL CONTRAST: No oral contrast ingested. RADIATION DOSE: 22.35 CTDIvol (mGy) MEDICAL HISTORY : Cardiovascular disease. Hypertension. Asthma. SURGICAL HISTORY : Cholecystectomy. Gastric sleeve. ENCOUNTER: Initial ACUITY: 2 days PAIN SCALE: 6/10 LOCATION: [facility]. TECHNIQUE: Volumetric scanning of the abdomen and pelvis was performed. Using automated exposure control and ad justment of the mA and/or kV according to patient size, radiation dose was kept as low as reasonably achievable to obtain optimal diagnostic quality images. DICOM format image data is available electro nically for review and comparison. FINDINGS: LOWER LUNGS: The visualized lower lungs are clear. LIVER: Homogeneous density without lesion. There is no dilation of the biliary tree. No calcified gallston es. SPLEEN: Normal size without lesion. PANCREAS: Within normal limits. KIDNEYS: Normal in size and shape. There is no mass, stone or hydronephrosis. ADRENAL GLANDS: Within normal limits. VASCULAR: There is no aortic aneurysm. BOWEL/MESENTERY: History of gastric bypass. ABDOMINAL WALL: Within normal limits. RETROPERITONEUM: There is no lymphadenopathy. BLADDER: No wall thickening or mass. REPRODUCTIVE: Within normal limits. INGUINAL: There is no lymphadenopathy or hernia. MUSCULOSKELETAL: Within normal limits for patient age. CONCLUSION: Previous gastric sleeve, normal bowel gas pattern. There are no inflammatory changes. I don't see an etiology for the pain. Jimi Bahena MD FACR on January 30, 2017 at 13:55 Board Certified Radiologist. This report was verified electronically.
== END 2017-01-30 14:30 | disposition home or self-care (01) ==
LOC: PHED 10:49
DX: R10.13 Epigastric pain (principal); Z98.84 Bariatric surgery status
CPT/HCPCS: 74177; 80053; 81001; 83690; 85025; 96361; 96374; 96375; 99285; J2270; J2405; J7030; Q9967

== ENCOUNTER 2017-07-30 23:32 | Emergency (ER) | payer MEDICAID ==
[~2017-07-30] VITALS: Ht 180.3 cm; Wt 154.9 kg
[~2017-07-30 23:32] MED LIST changes: -CLON0.1T PO; -CYAN1000P IM; -GABA300C5 PO; +GABA400C5 PO; -LYRI150C PO; -METHI10 PO; -PERC7.5T13 PO; -TRAZ100T6 PO
[2017-07-30 23:37] VITALS: BP 150/87; PULSE 72; RESP 18; TEMP 98.5; O2SAT 98
[2017-07-31] MEDS ORDERED: PERC7.5T13 PO (01:31)
[2017-07-31] MEDS ORDERED: CYCL10TA PO (01:31)
[2017-07-31] MEDS ORDERED: LYRI150C PO (01:31)
[2017-07-31] MEDS ORDERED: IBUP1TAB7 PO (03:10)
--- NOTE | 2017-07-31 03:14 | PD ---
HPI Chief Complaint: Pain: Acute or Chronic Time Seen by Provider: 03:00 Travel History International Travel<30 days: No Contact w/Intl Traveler<30days: No Traveled to known affect area: No History of Present Illness HPI The patient is a 37-year-old male that has had sciatic nerve problem since 2013. He has recently been talking to Dr. Haider about a surgical solution to this problem. He is already on Percocet, Flexeril, Lyrica and gabapentin. His medicines are not working the last 2 days. He comes in for pain. He is driving from here. The sciatic nerve pain is bilateral. He denies any recent trauma. His pain is a 9/10 and aching pain. He denies any bladder or bowel dysfunction. He states he is disabled because of this pain. PFSH Past Medical History Arthritis: Yes Asthma: Yes (as a child) Autoimmune Disease: No Blood Disorders: No Bipolar Disorder: Yes Anxiety: Yes Depression: Yes Heart Rhythm Problems: No Cancer: No Cardiac Catheterization: No Cardiovascular Problems: Yes (HEART MURMUR) High Cholesterol: No Chest Pain: Yes Congestive Heart Failure: No COPD: No Cerebrovascular Accident: No Diminished Hearing: No Endocrine: Yes (HYPOGLYCEMIA) Fibromyalgia: Yes Gastrointestinal Disorders: Yes GERD: Yes Genitourinary: Yes Headaches: Yes Hiatal Hernia: No Hypertension: Yes Immune Disorder: No Implanted Vascular Access Dvce: No Kidney Stones: Yes Musculoskeletal: Yes (FIBROMYALGIA, sees pain management) Neurologic: Yes Psychiatric: Yes (PTSD) Reproductive: No Respiratory: Yes Immunizations Current: No Migraines: No Schizophrenia: Yes Seizures: No Sleep Apnea: Yes Ulcer: No Tetanus Vaccination: < 5 Years Influenza Vaccination: No Past Surgical History Abdominal Surgery: Yes (GASTRIC SLEEVE 04/03, gallbadder removed 2006) Cardiac Surgery: No Cholecystectomy: Yes Coronary Artery Bypass Graft: No Ear Surgery: No Endocrine Surgery: No Eye Surgery: No Gynecologic Surgery: No Oral Surgery: Yes (T&A) Thoracic Surgery: No Tonsillectomy: Yes Other Surgery: Yes (gastric bypass) Social History Alcohol Use: Yes ("EVERY COUPLE MONTHS") Tobacco Use: No Substance Use: No Allergies-Medications (Allergen,Severity, Reaction): Coded Allergies: lactose (Verified Adverse Reaction, Unknown, Constipation, 07/31/17) Per patient. Reported Meds & Prescriptions Reported Meds & Active Scripts Active Ibuprofen 800 Mg Tab 800 Mg PO TID Gabapentin 400 Mg Cap 400 Cap PO TID Reported Percocet (Oxycodone-Acetaminophen) 7.5-325 mg Tab 1 Tab PO Q6H PRN Flexeril (Cyclobenzaprine HCl) 10 Mg Tab 10 Mg PO TID Lyrica (Pregabalin) 150 Mg Cap 150 Mg PO BID Review of Systems Except as stated in HPI: all other systems reviewed are Neg Physical Exam Narrative GENERAL: The patient is obese, alert, oriented 3 in moderate apparent distress with his sciatic nerve pain. His vital signs show blood pressure 150/87 but are otherwise normal. SKIN: Focused skin assessment warm/dry. HEAD: Atraumatic. Normocephalic. EYES: Pupils equal and round. No scleral icterus. No injection or drainage. ENT: No nasal bleeding or discharge. Mucous membranes pink and moist. NECK: Trachea midline. No JVD. CARDIOVASCULAR: Regular rate and rhythm. No murmur appreciated. RESPIRATORY: No accessory muscle use. Clear to auscultation. Breath sounds equal bilaterally. GASTROINTESTINAL: Abdomen soft, non-tender, nondistended. Hepatic and splenic margins not palpable. MUSCULOSKELETAL: No obvious deformities. No clubbing. No cyanosis. No edema. Straight leg raising is positive bilaterally and reproducing the pain. He has 0 reflexes both patella and Achilles. NEUROLOGICAL: Awake and alert. No obvious cranial nerve deficits. Motor grossly within normal limits. Normal speech. PSYCHIATRIC: Appropriate mood and affect; insight and judgment normal. Data Data Last Documented VS Vital Signs Date Time Temp Pulse Resp B/P (MAP) Pulse Ox O2 Delivery O2 Flow Rate FiO2 07/31/17 03:11 07/30/17 23:37 98.5 72 18 98 Orders Orders Ketorolac Inj (Toradol Inj) (07/31/17 03:15) [facility] Medical Decision Making Medical Screen Exam Complete: Yes Emergency Medical Condition: Yes Medical Record Reviewed: Yes Differential Diagnosis Herniated nucleus pulposus, sciatic nerve pain, acute lumbosacral strain Narrative Course The patient has sciatic nerve pain. This is chronic pain he is already on multiple medications for this. He has to drive from here and he will be given a shot of Toradol and a prescription for ibuprofen 800 #30. He needs to follow- up with Dr. Vazquez and the other doctors working on this problem. Diagnosis Primary Impression: Sciatic nerve pain Additional Instructions: Follow-up with Dr. Haider as you are doing. The ibuprofen is 1 tablet 3 times daily. Med/Other Pt SpecificInfo: Prescription(s) given Scripts Ibuprofen (Ibuprofen) 800 Mg Tab 800 MG PO TID, #30 TAB 0 Refills Prov: Mukesh Harris MD 07/31/17 Disposition: 01 DISCHARGE HOME Condition: Stable Mukesh Harris MD Jul 31, 2017 03:14
[2017-07-31] MEDS ORDERED: KETOROLAC TROMETHAMINE 60 MG/2 ML (IM) VIAL IM ONE (03:15)
== END 2017-07-31 03:27 | disposition home or self-care (01) ==
LOC: PHED 23:32
DX: M54.30 Sciatica, unspecified side (principal); F41.8 Other specified anxiety disorders; R01.1 Cardiac murmur, unspecified; M79.7 Fibromyalgia; I10 Essential (primary) hypertension; F43.10 Post-traumatic stress disorder, unspecified; F20.9 Schizophrenia, unspecified; Z87.442 Personal history of urinary calculi
CPT/HCPCS: 96372; 99283; J1885

== ENCOUNTER 2017-08-20 19:09 | Emergency (ER) | payer MEDICAID ==
[~2017-08-20] VITALS: Ht 180.3 cm; Wt 159.0 kg
[~2017-08-20 19:09] MED LIST changes: +CYCL10TA PO; +IBUP1TAB7 PO; +LYRI150C PO; +PERC7.5T13 PO
[2017-08-20 19:32] VITALS: BP 171/99; PULSE 71; RESP 20; TEMP 98.5; O2SAT 100
--- NOTE | 2017-08-20 19:45 | PD ---
HPI Chief Complaint: GI Complaint Time Seen by Provider: 19:45 Travel History International Travel<30 days: No Contact w/Intl Traveler<30days: No Traveled to known affect area: No History of Present Illness HPI 37-year-old male came to the emergency room with history of nausea, vomiting and headache. Patient describes his headache as migraine headaches and says that he does have history of migraine headache. The headache is mostly frontal and it is 9-9 and half out of 10. Light makes the headache worse. Patient says that this 1 started off with nausea and vomiting first. He tried taking ibuprofen this morning but was unable to keep them down. Vital signs are stable otherwise. Patient says he comes to the emergency room when his headache gets this bad. No history of diarrhea. No known sick contacts. No radiation of the headache. PFSH Past Medical History Narrative Medical List of his past medical, surgical, social and family history is reviewed from the nursing note. Arthritis: Yes Asthma: Yes (as a child) Autoimmune Disease: No Blood Disorders: No Bipolar Disorder: Yes Anxiety: Yes Depression: Yes Heart Rhythm Problems: No Cancer: No Cardiac Catheterization: No Cardiovascular Problems: Yes (HEART MURMUR) High Cholesterol: No Chest Pain: Yes Congestive Heart Failure: No COPD: No Cerebrovascular Accident: No Diminished Hearing: No Endocrine: Yes (HYPOGLYCEMIA) Fibromyalgia: Yes Gastrointestinal Disorders: Yes GERD: Yes Genitourinary: Yes Headaches: Yes Hiatal Hernia: No Hypertension: Yes Immune Disorder: No Implanted Vascular Access Dvce: No Kidney Stones: Yes Musculoskeletal: Yes (FIBROMYALGIA, sees pain management) Neurologic: Yes Psychiatric: Yes (PTSD) Reproductive: No Respiratory: Yes Immunizations Current: No Migraines: No Schizophrenia: Yes Seizures: No Sleep Apnea: Yes Ulcer: No Past Surgical History Abdominal Surgery: Yes (GASTRIC SLEEVE 04/03, gallbadder removed 2006) Cardiac Surgery: No Cholecystectomy: Yes Coronary Artery Bypass Graft: No Ear Surgery: No Endocrine Surgery: No Eye Surgery: No Gynecologic Surgery: No Oral Surgery: Yes (T&A) Thoracic Surgery: No Tonsillectomy: Yes Other Surgery: Yes (gastric bypass) Social History Alcohol Use: Yes ("EVERY COUPLE MONTHS") Tobacco Use: No Substance Use: No Allergies-Medications (Allergen,Severity, Reaction): Coded Allergies: lactose (Verified Adverse Reaction, Unknown, Constipation, 08/20/17) Per patient. Comments List of his allergies reviewed from the nursing note. Reported Meds & Prescriptions Reported Meds & Active Scripts Active Fioricet (Ehqakvruaw-Kvkbplwxlccph-Wuchpjve) 50-300-40 Mg Cap 1-2 Cap PO Q6H PRN Zofran Odt (Ondansetron Odt) 4 Mg Tab 4 Mg SL Q6HR PRN Gabapentin 400 Mg Cap 400 Cap PO TID Reported Percocet (Oxycodone-Acetaminophen) 7.5-325 mg Tab 1 Tab PO Q6H PRN Lyrica (Pregabalin) 150 Mg Cap 150 Mg PO BID Narrative Medication List of his home medications reviewed from the nursing note. Review of Systems Except as stated in HPI: all other systems reviewed are Neg HENT: Positive: Headaches Gastrointestinal: Positive: Nausea, Vomiting Physical Exam Narrative GENERAL: Awake, alert, moderate distress, anxious SKIN: Focused skin assessment warm/dry. HEAD: Atraumatic. Normocephalic. EYES: Pupils equal and round. No scleral icterus. No injection or drainage. ENT: No nasal bleeding or discharge. Mucous membranes pink and moist. NECK: Trachea midline. No JVD. Neck is supple. CARDIOVASCULAR: Regular rate and rhythm. No murmur appreciated. RESPIRATORY: No accessory muscle use. Clear to auscultation. Breath sounds equal bilaterally. GASTROINTESTINAL: Abdomen soft, non-tender, nondistended. Hepatic and splenic margins not palpable. MUSCULOSKELETAL: No obvious deformities. No clubbing. No cyanosis. No edema. NEUROLOGICAL: Awake and alert. No obvious cranial nerve deficits. Motor grossly within normal limits. Normal speech. PSYCHIATRIC: Appropriate mood and affect; insight and judgment normal. Data Data Last Documented VS Vital Signs Date Time Temp Pulse Resp B/P (MAP) Pulse Ox O2 Delivery O2 Flow Rate FiO2 08/20/17 21:52 66 16 176/97 (123) 97 08/20/17 20:55 Room Air 08/20/17 19:32 98.5 Orders Orders Complete Blood Count With Diff (08/20/17 19:48) Basic Metabolic Panel (Bmp) (08/20/17 19:48) Ecg Monitoring (08/20/17 19:48) Iv Access Insert/Monitor (08/20/17 19:48) Oximetry (08/20/17 19:48) Sodium Chloride 0.9% Flush (Ns Flush) (08/20/17 20:00) Prochlorperazine Inj (Compazine Inj) (08/20/17 20:00) Sodium Chlor 0.9% 1000 Ml Inj (Ns 1000 M (08/20/17 19:48) Ed Discharge Order (08/20/17 21:40) Labs Laboratory Tests Test 08/20/17 20:40 White Blood Count 6.8 TH/MM3 Red Blood Count 4.68 MIL/MM3 Hemoglobin 13.1 GM/DL Hematocrit 40.1 % Mean Corpuscular Volume 85.6 FL Mean Corpuscular Hemoglobin 27.9 PG Mean Corpuscular Hemoglobin Concent 32.6 % Red Cell Distribution Width 13.0 % Platelet Count 312 TH/MM3 Mean Platelet Volume 8.1 FL Neutrophils (%) (Auto) 68.7 % Lymphocytes (%) (Auto) 23.3 % Monocytes (%) (Auto) 4.4 % Eosinophils (%) (Auto) 1.1 % Basophils (%) (Auto) 2.5 % Neutrophils # (Auto) 4.6 TH/MM3 Lymphocytes # (Auto) 1.6 TH/MM3 Monocytes # (Auto) 0.3 TH/MM3 Eosinophils # (Auto) 0.1 TH/MM3 Basophils # (Auto) 0.2 TH/MM3 CBC Comment DIFF FINAL Differential Comment Blood Urea Nitrogen 7 MG/DL Creatinine 0.78 MG/DL Random Glucose 94 MG/DL Calcium Level 9.5 MG/DL Sodium Level 140 MEQ/L Potassium Level 3.6 MEQ/L Chloride Level 104 MEQ/L Carbon Dioxide Level 30.3 MEQ/L Anion Gap 6 MEQ/L Estimat Glomerular Filtration Rate 137 ML/MIN MDM Medical Decision Making Medical Screen Exam Complete: Yes Emergency Medical Condition: Yes Medical Record Reviewed: Yes Differential Diagnosis Status migrainous, dehydration, acute gastritis Narrative Course 8:03 PM awaiting for the blood test result. Patient was given IV fluid and IV Compazine for his ailment. I will reassess him in a bit. 9:38 PM blood test results are back and within acceptable limit. Patient will be discharged home Procedures EKG Prior to Arrival: No Diagnosis Primary Impression: Head ache Qualified Codes: R51 - Headache Additional Impression: Acute gastritis Qualified Codes: K29.00 - Acute gastritis without bleeding Referrals: Primary Care Physician Additional Instructions: Take the medication as per the prescription direction. Clear liquid diet for the next 24 hours. Do not drink alcohol. Do not eat spicy or fried food. Follow-up with primary care. Return to ER if condition worsens any other new concerns. Med/Other Pt SpecificInfo: Prescription(s) given Scripts Qvvglcsocd-Gbslzupoyxirh-Yqcqqwbb (Fioricet) 50-300-40 Mg Cap 1-2 CAP PO Q6H Y for HEADACHE, #12 CAP 0 Refills Prov: Kenyon Hendrickson MD 08/20/17 Ondansetron Odt (Zofran Odt) 4 Mg Tab 4 MG SL Q6HR Y for Nausea/Vomiting, #10 TAB 0 Refills Prov: Kenyon Hendrickson MD 08/20/17 Disposition: 01 DISCHARGE HOME Condition: Stable Kenyon Hendrickson MD August 20, 2017 19:45
[2017-08-20] MEDS ORDERED: SODIUM CHLOR 0.9% 1000 ML INJ 1,000 ML IV ONE (19:48)
[2017-08-20] MEDS ORDERED: SODIUM CHLORIDE 0.9% FLUSH 10 ML FLUSH IVF PRN (20:00)
[2017-08-20] MEDS ORDERED: PROCHLORPERAZINE INJ 10 MG/2 ML VIAL IVP ONE (20:00)
[2017-08-20 20:49] LABS: AUTOMATED NEUTROPHIL # 4.6 TH/MM3 (1.8-7.7); BASOPHIL # 0.2 TH/MM3 (0-0.2); BASOPHIL % 2.5 % (0.0-2.0); EOSINOPHIL # 0.1 TH/MM3 (0-0.4); EOSINOPHIL % 1.1 % (0.0-4.0); HEMATOCRIT 40.1 % (39.0-51.0); HEMOGLOBIN 13.1 GM/DL (13.0-17.0); LYMPH % 23.3 % (9.0-44.0); LYMPHOCYTE # 1.6 TH/MM3 (1.0-4.8); MEAN CELL VOLUME 85.6 FL (80.0-100.0); MEAN CORPUSCULAR HEMOGLOBIN 27.9 PG (27.0-34.0); MEAN CORPUSCULAR HGB CONC 32.6 % (32.0-36.0); MEAN PLATELET VOLUME 8.1 FL (7.0-11.0); MONO % 4.4 % (0.0-8.0); MONOCYTE # 0.3 TH/MM3 (0-0.9); NEUT % 68.7 % (16.0-70.0); PLATELET COUNT 312 TH/MM3 (150-450); RED BLOOD COUNT 4.68 MIL/MM3 (4.50-5.90); WHITE BLOOD COUNT 6.8 TH/MM3 (4.0-11.0)
[2017-08-20 20:55] VITALS: RESP 16; O2SAT 98
[2017-08-20 20:59] LABS: CALCIUM 9.5 MG/DL (8.5-10.1)
[2017-08-20 21:00] LABS: BICARBONATE 30.3 MEQ/L (21.0-32.0)
[2017-08-20 21:03] LABS: CREATININE 0.78 MG/DL (0.60-1.30)
[2017-08-20] MEDS ORDERED: ZOFR4TAB3 SL (21:39)
[2017-08-20] MEDS ORDERED: BUTA1CAP PO (21:40)
[2017-08-20 21:52] VITALS: BP 176/97
== END 2017-08-20 21:56 | disposition home or self-care (01) ==
LOC: PHEFT 19:09
DX: R51 Headache (principal); K29.00 Acute gastritis without bleeding; M19.90 Unspecified osteoarthritis, unspecified site; J45.909 Unspecified asthma, uncomplicated; F31.9 Bipolar disorder, unspecified; M79.7 Fibromyalgia; K21.9 Gastro-esophageal reflux disease without esophagitis; I10 Essential (primary) hypertension; Z87.442 Personal history of urinary calculi
CPT/HCPCS: 80048; 85025; 96361; 96374; 99284; J0780; J7030

== ENCOUNTER 2017-08-24 23:06 | Emergency (ER) | payer MEDICAID ==
[~2017-08-24] VITALS: Ht 180.3 cm; Wt 145.0 kg
[~2017-08-24 23:06] MED LIST changes: +BUTA1CAP PO; -CYCL10TA PO; -IBUP1TAB7 PO; +ZOFR4TAB3 SL
[2017-08-24 23:15] VITALS: BP 169/95; PULSE 69; RESP 16; TEMP 99.4; O2SAT 100
[2017-08-24] MEDS ORDERED: ONDANSETRON HCL 4 MG/2 ML VIAL IVP ONE (23:30)
[2017-08-24] MEDS ORDERED: SODIUM CHLORIDE 0.9% FLUSH 10 ML FLUSH IV FLUSH PRN (23:30)
--- NOTE | 2017-08-24 23:36 | PD ---
HPI Chief Complaint: GI Complaint Time Seen by Provider: 23:29 Travel History International Travel<30 days: No Contact w/Intl Traveler<30days: No Traveled to known affect area: No History of Present Illness HPI 37-year-old male presents to the emergency department by private transportation for evaluation of nausea vomiting abdominal pain 1 week. Patient also reports fever. Patient states today's temperature was 103.0F. Patient states he was seen earlier in the week at [facility] and discharged with a prescription for Zofran ODT but it has not controlled his nausea or vomiting. Patient states she has not eaten or taken hydration 1 week. Patient is status post gastric sleeve and reportedly since gastric sleeve in 2012 has lost 500 pounds. No report of hematemesis coffee-ground emesis melena or hematochezia. Patient does not report any sinus pressure drainage earache sore throat neck pain chest pain shortness of breath flank pain dysuria frequency or urgency. Patient has had some loose stools. No recent antibiotic use. Patient also has history of migraines but does not complain of headache or migraine at this time. Patient is unable to identify exacerbating or alleviating factors. Patient states she has had multiple similar issues and complications post gastric sleeve. PFSH Past Medical History Narrative Medical Arthritis anxiety depression fibromyalgia hyperglycemia hypertension migraine schizophrenia sleep apnea gastric sleeve cholecystectomy tonsillectomy adenoidectomy occasional alcohol use; nursing notes reviewed Arthritis: Yes Asthma: Yes (as a child) Autoimmune Disease: No Blood Disorders: No Bipolar Disorder: Yes Anxiety: Yes Depression: Yes Heart Rhythm Problems: No Cancer: No Cardiac Catheterization: No Cardiovascular Problems: Yes (HEART MURMUR) High Cholesterol: No Chest Pain: Yes Congestive Heart Failure: No COPD: No Cerebrovascular Accident: No Diabetes: No (HYPO) Diminished Hearing: No Endocrine: Yes (HYPOGLYCEMIA) Fibromyalgia: Yes Gastrointestinal Disorders: Yes GERD: Yes Genitourinary: Yes Headaches: Yes Hiatal Hernia: No Hypertension: Yes Immune Disorder: No Implanted Vascular Access Dvce: No Kidney Stones: Yes Musculoskeletal: Yes (FIBROMYALGIA, sees pain management) Neurologic: Yes Psychiatric: Yes (PTSD) Reproductive: No Respiratory: Yes Immunizations Current: No Migraines: Yes Schizophrenia: Yes Seizures: No Sleep Apnea: Yes Ulcer: No Tetanus Vaccination: > 5 Years Influenza Vaccination: No Past Surgical History Abdominal Surgery: Yes (GASTRIC SLEEVE 04/03, gallbadder removed 2006) Cardiac Surgery: No Cholecystectomy: Yes Coronary Artery Bypass Graft: No Ear Surgery: No Endocrine Surgery: No Eye Surgery: No Gynecologic Surgery: No Oral Surgery: Yes (T&A) Thoracic Surgery: No Tonsillectomy: Yes Other Surgery: Yes (gastric bypass) Social History Alcohol Use: Yes (occass.) Tobacco Use: No Substance Use: No Allergies-Medications (Allergen,Severity, Reaction): Coded Allergies: lactose (Verified Adverse Reaction, Unknown, Constipation, 08/20/17) Per patient. Reported Meds & Prescriptions Reported Meds & Active Scripts Active Fioricet (Ftdpijajya-Pxhlnxnftjpky-Ujzeiuqf) 50-300-40 Mg Cap 1-2 Cap PO Q6H PRN Zofran Odt (Ondansetron Odt) 4 Mg Tab 4 Mg SL Q6HR PRN Gabapentin 400 Mg Cap 400 Cap PO TID Reported Percocet (Oxycodone-Acetaminophen) 7.5-325 mg Tab 1 Tab PO Q6H PRN Lyrica (Pregabalin) 150 Mg Cap 150 Mg PO BID Narrative Medication Nursing notes reviewed Review of Systems Except as stated in HPI: all other systems reviewed are Neg General / Constitutional: Positive: Fever HENT: No: Sore Throat, Congestion Cardiovascular: No: Chest Pain or Discomfort Respiratory: No: Cough, Shortness of Breath Gastrointestinal: Positive: Nausea, Vomiting, Diarrhea, Abdominal Pain Genitourinary: No: Dysuria, Flank Pain Musculoskeletal: No: Myalgias, Arthralgias Skin: No Rash Neurologic: No: Weakness, Dizziness, Syncope Psychiatric: No: Anxiety Hematologic/Lymphatic: No: Lymph Node Enlargement Physical Exam Narrative GENERAL: Well-developed well-nourished obese male in no acute distress no respiratory distress SKIN: Warm and dry. HEAD: Normocephalic. EYES: No scleral icterus. No injection or drainage. NECK: Supple, trachea midline. No JVD or lymphadenopathy. CARDIOVASCULAR: Regular rate and rhythm without murmurs, gallops, or rubs. RESPIRATORY: Breath sounds equal bilaterally. No accessory muscle use. GASTROINTESTINAL: Abdomen soft, epigastric tenderness to palpation without guarding or rebound, nondistended. MUSCULOSKELETAL: No cyanosis, or edema. BACK: Nontender without obvious deformity. No CVA tenderness. Data Data Last Documented VS Vital Signs Date Time Temp Pulse Resp B/P (MAP) Pulse Ox O2 Delivery O2 Flow Rate FiO2 08/24/17 23:52 100 Room Air 08/24/17 23:15 99.4 69 16 169/95 (119) Orders Orders Complete Blood Count With Diff (08/24/17 23:29) Comprehensive Metabolic Panel (08/24/17 23:29) Lipase (08/24/17 23:29) Lactic Acid (08/24/17 23:29) Urinalysis - C+S If Indicated (08/24/17 23:29) Ct Abd/Pel W Iv Contrast(Rout) (08/24/17 23:29) Iv Access Insert/Monitor (08/24/17 23:29) Ecg Monitoring (08/24/17 23:29) Oximetry (08/24/17 23:29) Ondansetron Inj (Zofran Inj) (08/24/17 23:30) Sodium Chloride 0.9% Flush (Ns Flush) (08/24/17 23:30) Chest, Single Ap (08/24/17 23:29) Iohexol 350 Inj (Omnipaque 350 Inj) (08/25/17 01:13) Ed Discharge Order (08/25/17 01:41) Labs Laboratory Tests Test 08/24/17 23:45 08/24/17 23:59 White Blood Count 11.6 TH/MM3 Red Blood Count 4.89 MIL/MM3 Hemoglobin 13.5 GM/DL Hematocrit 41.6 % Mean Corpuscular Volume 85.1 FL Mean Corpuscular Hemoglobin 27.7 PG Mean Corpuscular Hemoglobin Concent 32.5 % Red Cell Distribution Width 14.1 % Platelet Count 321 TH/MM3 Mean Platelet Volume 8.7 FL Neutrophils (%) (Auto) 70.6 % Lymphocytes (%) (Auto) 18.8 % Monocytes (%) (Auto) 9.6 % Eosinophils (%) (Auto) 0.4 % Basophils (%) (Auto) 0.6 % Neutrophils # (Auto) 8.2 TH/MM3 Lymphocytes # (Auto) 2.2 TH/MM3 Monocytes # (Auto) 1.1 TH/MM3 Eosinophils # (Auto) 0.0 TH/MM3 Basophils # (Auto) 0.1 TH/MM3 CBC Comment DIFF FINAL Differential Comment Blood Urea Nitrogen 11 MG/DL Creatinine 0.78 MG/DL Random Glucose 82 MG/DL Total Protein 7.6 GM/DL Albumin 3.9 GM/DL Calcium Level 9.3 MG/DL Alkaline Phosphatase 67 U/L Aspartate Amino Transf (AST/SGOT) 12 U/L Alanine Aminotransferase (ALT/SGPT) 18 U/L Total Bilirubin 2.9 MG/DL Sodium Level 143 MEQ/L Potassium Level 3.5 MEQ/L Chloride Level 107 MEQ/L Carbon Dioxide Level 24.1 MEQ/L Anion Gap 12 MEQ/L Estimat Glomerular Filtration Rate 137 ML/MIN Lactic Acid Level 1.2 mmol/L Lipase 144 U/L Urine Color YELLOW Urine Turbidity CLEAR Urine pH 6.0 Urine Specific [place] 1.030 Urine Protein 30 mg/dL Urine Glucose (UA) NEG mg/dL Urine Ketones 150 mg/dL Urine Occult Blood TRACE Urine Nitrite NEG Urine Bilirubin NEG Urine Urobilinogen 4.0 MG/DL Urine Leukocyte Esterase NEG Urine RBC 5 /hpf Urine WBC 2 /hpf Urine Squamous Epithelial Cells 1 /hpf Urine Hyaline Casts 4 /lpf Urine Mucus MANY /lpf Microscopic Urinalysis Comment CULT NOT INDICATED MDM Medical Decision Making Medical Screen Exam Complete: Yes Emergency Medical Condition: Yes Medical Record Reviewed: Yes Differential Diagnosis Abdominal pain, gastroenteritis, bowel obstruction, UTI, viral syndrome, electrolyte disturbance, dehydration Narrative Course IV access obtained specimens collections of resulting patient administered Zofran IV and IV fluids Patient waiting for lab results Labs grossly within normal range CT abdomen pelvis reveals no acute intra-abdominal or pelvic process Patient informed of imaging and lab results and stable for outpatient management. Diagnosis Primary Impression: Vomiting Referrals: Primary Care Physician 2 days Patient Instructions: General Instructions Med/Other Pt SpecificInfo: Prescription(s) given Scripts Promethazine (Phenergan) 25 Mg Tablet 25 MG PO Q6H Y for NAUSEA OR VOMITING, #10 TAB 0 Refills Prov: Aiyana Pierce MD 08/25/17 Disposition: 01 DISCHARGE HOME Condition: Stable Aiyana Pierce MD August 24, 2017 23:36
[2017-08-24 23:52] VITALS: O2SAT 100
[2017-08-25 00:07] LABS: AUTOMATED NEUTROPHIL # 8.2 TH/MM3 (1.8-7.7); BASOPHIL # 0.1 TH/MM3 (0-0.2); BASOPHIL % 0.6 % (0.0-2.0); EOSINOPHIL % 0.4 % (0.0-4.0); HEMATOCRIT 41.6 % (39.0-51.0); HEMOGLOBIN 13.5 GM/DL (13.0-17.0); LYMPH % 18.8 % (9.0-44.0); LYMPHOCYTE # 2.2 TH/MM3 (1.0-4.8); MEAN CELL VOLUME 85.1 FL (80.0-100.0); MEAN CORPUSCULAR HEMOGLOBIN 27.7 PG (27.0-34.0); MEAN CORPUSCULAR HGB CONC 32.5 % (32.0-36.0); MEAN PLATELET VOLUME 8.7 FL (7.0-11.0); MONO % 9.6 % (0.0-8.0); MONOCYTE # 1.1 TH/MM3 (0-0.9); NEUT % 70.6 % (16.0-70.0); PLATELET COUNT 321 TH/MM3 (150-450); RED BLOOD COUNT 4.89 MIL/MM3 (4.50-5.90); RED CELL DISTRIBUTION WIDTH 14.1 % (11.6-17.2); WHITE BLOOD COUNT 11.6 TH/MM3 (4.0-11.0)
[2017-08-25 00:26] LABS: ALBUMIN 3.9 GM/DL (3.4-5.0); AST (GOT) 12 U/L (15-37); BICARBONATE 24.1 MEQ/L (21.0-32.0); BLOOD UREA NITROGEN 11 MG/DL (7-18); CALCIUM 9.3 MG/DL (8.5-10.1); CHLORIDE 107 MEQ/L (98-107); CREATININE 0.78 MG/DL (0.60-1.30); GLOMERULAR FILTRATION RATE 137 ML/MIN (>89); GLUCOSE,RANDOM 82 MG/DL (74-106); SODIUM (NA) 143 MEQ/L (136-145)
--- NOTE | 2017-08-25 00:28 | RADRPT ---
EXAM DATE/TIME: 08/24/2017 23:50 [facility] COMPARISON: CHEST SINGLE AP, December 29, 2016, 13:17. INDICATIONS : Nausea and vomiting. MEDICAL HISTORY : Heart murmur. Hypertension. Asthma. GERD. Renal calculi. Hypothyroidism. Hypoglycemia. UTI. Fibromyal loretta. Arthritis. SURGICAL HISTORY : Cholecystectomy. Gastric sleeve. ENCOUNTER: Initial ACUITY: 1 week PAIN SCORE: 3/10 LOCATION: Bilateral chest FINDINGS: A single view of the chest demonstrates the lungs to be symmetrically aerated without evidence of mas s, infiltrate or effusion. The cardiomediastinal contours are unremarkable. Osseous structures are intact. CONCLUSION: No acute disease. Salty Beaulieu MD on August 25, 2017 at 0:25 Board Certified Radiologist. This report was verified electronically.
[2017-08-25 00:29] LABS: ALKALINE PHOSPHATASE 67 U/L (45-117); ALT (GPT) 18 U/L (12-78); TOTAL BILIRUBIN ADULT 2.9 MG/DL (0.2-1.0); TOTAL PROTEIN 7.6 GM/DL (6.4-8.2)
[2017-08-25 01:00] VITALS: BP 147/76; PULSE 84; RESP 16; O2SAT 100
[2017-08-25 01:12] LABS: BLOOD, URINE TRACE (NEG); GLUCOSE,URINE NEG (NEG); HYALINE CAST, URINE 4 /lpf (RARE); KETONE, URINE 150 mg/dL (NEG); MUCUS URINE MANY /lpf (OCC); NITRITE,URINE NEG (NEG); SQUAMOUS EPITHELIAL CELL URINE 1 /hpf (0-5); URINE COLOR YELLOW (YELLW/STRAW); URINE LEUKOCYTE ESTERASE NEG (NEG)
[2017-08-25] MEDS ORDERED: IOHEXOL 350 MG/ML 10 ML VIAL (for RAD DIAG) IVCONTRAST ONE (01:13)
[2017-08-25 01:14] LABS: BILIRUBIN, URINE NEG (NEG)
--- NOTE | 2017-08-25 01:36 | RADRPT ---
EXAM DATE/TIME: 08/25/2017 01:13 [facility] COMPARISON: No previous studies available for comparison. INDICATIONS : Fever, nausea, vomiting and abdominal pain x 1 week. IV CONTRAST: 95 cc Omnipaque 350 (iohexol) IV ORAL CONTRAST: No oral contrast ingested. RADIATION DOSE: 30.96 CTDIvol (mGy) ; Patient body habitus MEDICAL HISTORY : Renal calculi. Gastroesophageal reflux disease. Diabetes mellitus type 2.Asthma. Hypertension. Heart murmur. SURGICAL HISTORY : Cholecystectomy. Gastric bypass. ENCOUNTER: Initial ACUITY: 1 week PAIN SCALE: 7/10 LOCATION: Abdomen. TECHNIQUE: Volumetric scanning of the abdomen and pelvis was performed. Using automated exposure control and ad justment of the mA and/or kV according to patient size, radiation dose was kept as low as reasonably achievable to obtain optimal diagnostic quality images. DICOM format image data is available electro nically for review and comparison. FINDINGS: LOWER LUNGS: The visualized lower lungs are clear. LIVER: Homogeneous density without lesion. There is no dilation of the biliary tree. Gallbladder surgically absent. SPLEEN: Normal size without lesion. Splenule adjacent to the posterior medial inferior spleen. PANCREAS: Within normal limits. KIDNEYS: Normal in size and shape. There is no mass, stone or hydronephrosis. ADRENAL GLANDS: Within normal limits. VASCULAR: There is no aortic aneurysm. BOWEL/MESENTERY: Previous gastric bypass surgery. No abnormal dilatation of bowel. No wall thickening or inflammatory changes. ABDOMINAL WALL: Within normal limits. RETROPERITONEUM: There is no lymphadenopathy. BLADDER: No wall thickening or mass. REPRODUCTIVE: Within normal limits. INGUINAL: There is no lymphadenopathy or hernia. MUSCULOSKELETAL: Within normal limits for patient age. CONCLUSION: No acute CT findings in the abdomen or pelvis Salty Beaulieu MD on August 25, 2017 at 1:26 Board Certified Radiologist. This report was verified electronically.
[2017-08-25] MEDS ORDERED: PROM25TA10 PO (01:42)
== END 2017-08-25 01:56 | disposition home or self-care (01) ==
LOC: NEPC 23:06
DX: R11.2 Nausea with vomiting, unspecified (principal); R10.13 Epigastric pain; M79.7 Fibromyalgia; I10 Essential (primary) hypertension; F31.9 Bipolar disorder, unspecified; K21.9 Gastro-esophageal reflux disease without esophagitis; J45.909 Unspecified asthma, uncomplicated; F20.9 Schizophrenia, unspecified; F43.10 Post-traumatic stress disorder, unspecified
CPT/HCPCS: 71045; 74177; 80053; 81001; 83605; 83690; 85025; 96374; 99285; J2405; Q9967

== ENCOUNTER 2017-09-23 05:59 | Inpatient (IN) | payer MEDICAID ==
[~2017-09-23] VITALS: Ht 180.3 cm; Wt 173.0 kg
[~2017-09-23 05:59] MED LIST changes: -BUTA1CAP PO; +PROM25TA10 PO; +PROT40TA PO
[2017-09-23] MEDS ORDERED: LACTATED RINGER'S 1000 ML IV PRN (06:30)
[2017-09-23] MEDS ORDERED: POVIDONE IODINE 5% (ANTISEPSIS KIT) 4 APPLICATIONS EACH NARE PRN (06:30)
[2017-09-23] MEDS ORDERED: CHLORHEXIDINE GLUCONATE 2 % 1 PACK (2 CLOTHS) TOPICAL PRN (06:30)
[2017-09-23] MEDS ORDERED: SODIUM CHLORID 0.9% 500 ML IV PRN (06:30)
[2017-09-23] MEDS ORDERED: METOPROLOL TARTRATE 25 MG TAB PO PRN (06:30)
[2017-09-23] MEDS ORDERED: ceFAZolin 1,000 MG/NS 100 ML IV SCH ×2 (06:30)
[2017-09-23] MEDS ORDERED: CLON0.2T PO (06:40)
[2017-09-23] MEDS ORDERED: SERO100T PO (06:40)
[2017-09-23] MEDS ORDERED: ACETAMINOPHEN 1000 MG/100 ML 100 ML IV ONE (06:53)
[2017-09-23] MEDS ORDERED: ARTIFICIAL TEARS OPTH OINT 3.5 APPLIC/3.5 GM TUBO ONE (06:53)
[2017-09-23] MEDS ORDERED: PROPOFOL 500 MG/50 ML INJ 100 ML ONE ×3 (06:54→13:54)
[2017-09-23] MEDS ORDERED: LIDOCAINE 1%/EPINEPHrine 1:100,000 SOLN 20 ML VIAL ONE ×2 (07:05→07:10)
[2017-09-23] MEDS ORDERED: THROMBIN (TOPICAL) 5,000 UNIT VIAL ONE (07:05)
[2017-09-23] MEDS ORDERED: HEPARIN SODIUM - IV 10,000 UNITS/10 ML VIAL ONE (07:06)
[2017-09-23] MEDS ORDERED: GELFOAM SIZE 100 ONE (07:06)
[2017-09-23] MEDS ORDERED: GENTAMICIN SULFATE 80 MG/2 ML VIAL ONE (07:06)
[2017-09-23] MEDS ORDERED: BUPIVACAINE LIPOSOME PF 1.3% 20 ML VIAL ONE (07:35)
[2017-09-23] MEDS ORDERED: HEPARIN SODIUM - SQ 10,000 UNITS/ML VIAL ONE (07:50)
[2017-09-23] MEDS ORDERED: ceFAZolin INJ 1,000 MG VIAL ONE (08:13)
[2017-09-23] MEDS ORDERED: DEXAMETHASONE SOD PHOS 4 MG/ML VIAL ONE (09:31)
[2017-09-23] MEDS ORDERED: ceFAZolin INJ 1,000 MG VIAL IV ONE ×2 (09:50→12:00)
[2017-09-23] MEDS ORDERED: BUPIVACAINE LIPOSOME PF 1.3% 20 ML VIAL INFIL ONE (10:43)
[2017-09-23] MEDS ORDERED: ONDANSETRON HCL 4 MG/2 ML VIAL IV PUSH ONE (12:00)
[2017-09-23] MEDS ORDERED: LIDOCAINE HCL 1% PF 5 ML SYRINGE OTHER ONE (12:00)
[2017-09-23] MEDS ORDERED: DEXAMETHASONE SOD PHOS 4 MG/ML VIAL IV ONE (12:00)
[2017-09-23] MEDS ORDERED: ROCURONIUM INJ 50 MG/5 ML SYRINGE IV PUSH ONE (12:00)
[2017-09-23] MEDS ORDERED: PROPOFOL 200 MG/20 ML AMP IV ONE (12:00)
[2017-09-23] MEDS ORDERED: LACTATED RINGER'S 1000 ML INJ 3,000 ML IV ONE (12:00)
[2017-09-23] MEDS ORDERED: PHENYLEPH/NS 1000 MCG/10 ML SYR IV ONE (12:00)
[2017-09-23] MEDS ORDERED: PHENYLEPHRINE HCL 10 MG/ML VIAL IV ONE (12:00)
[2017-09-23] MEDS ORDERED: ePHEDrine/NS 25 MG/5 ML SYRINGE IV ONE (12:00)
[2017-09-23] MEDS ORDERED: SODIUM CHLORID 0.9% 500 ML INJ 500 ML IV ONE (12:00)
[2017-09-23] MEDS ORDERED: SODIUM CHLOR 0.9% 250 ML INJ 250 ML IV ONE (12:00)
[2017-09-23] MEDS ORDERED: ONDANSETRON ODT 4 MG TAB PO ONE (12:00)
[2017-09-23] MEDS ORDERED: ceFAZolin 2 GM PREMIX 50 ML ONE (12:59)
[2017-09-23] MEDS ORDERED: MIDAZOLAM HCL 2 MG/2 ML VIAL ONE (17:25)
[2017-09-23] MEDS ORDERED: *morphine SULFATE 10 MG/ML PERIprocedure ONLY ONE ×3 (17:49→19:19)
[2017-09-23] MEDS: 1/2 NS + KCL 20 MEQ INJ 1,000 ML IV SCH (18:17)
[2017-09-23] MEDS ORDERED: ACETAMINOPHEN/HYDROcodone 325 MG/10 MG TAB PO PRN (18:30)
[2017-09-23] MEDS ORDERED: NALOXONE HCL 0.4 MG/ML AMP IV PUSH PRN ×2 (18:30→18:45)
[2017-09-23] MEDS ORDERED: MORPHINE SULFATE 4 MG/ML INJ IV PRN (18:45)
[2017-09-23] MEDS ORDERED: GLUCAGON 1 MG/ML VIAL OTHER PRN (18:45)
[2017-09-23] MEDS ORDERED: DEXTROSE 50% IN WATER 50 ML VIAL(D50) IV PUSH PRN (18:45)
[2017-09-23] MEDS ORDERED: DO NOT ADM ANY ANTICOAGULANT DRUGS PRN (18:45)
[2017-09-23] MEDS ORDERED: PROMETHAZINE HCL 25 MG TAB PO PRN (18:45)
[2017-09-23] MEDS ORDERED: HYDROmorphone HCL PF 2 MG/ML VIAL IV PRN ×2 (18:45)
--- NOTE | 2017-09-23 19:02 | PD.OP ---
Operative Report Date of Surgery: Sep 23, 2017 Preoperative Diagnosis: (1) Herniated nucleus pulposus, lumbar (2) Degenerative disc disease (3) Chronic radicular lumbar pain (4) Morbid obesity with BMI of 40.0-44.9, adult 1. Lumbar herniated nucleus pulposus 2. Lumbar spondylosis and degenerative disc disease 3. Chronic lumbar radiculopathy 4. Morbid obesity Postoperative Diagnosis: (1) Herniated nucleus pulposus, lumbar (2) Degenerative disc disease (3) Chronic radicular lumbar pain (4) Morbid obesity with BMI of 40.0-44.9, adult 1. Lumbar herniated nucleus pulposus 2. Lumbar spondylosis and degenerative disc disease 3. Chronic lumbar radiculopathy 4. Morbid obesity Procedure: 1. Right L4-5 and L5-S1 decompressive semi-laminectomy, foraminotomy 2. Right L5-S1 discectomy, resection herniated nucleus pulposus 3. L4-5 and L5-S1 discectomy, interbody fusion, PEEK cage, lamina autograft and demineralized bone matrix. 4. Right L4 through S1 posterior instrumentation 5. Right L4 through S1 posterior lateral fusion with lamina autograft and demineralized bone matrix Anesthesia: General Surgeon: Julian Haider Kindergarten Instructional Assistant(s): Cara Csise Operation and Findings: Indications: Morbidly obese male who is undergone previous bariatric surgery, extensive physical therapy. Presents with chronic lumbar radiculopathy, left lower extremity motor deficit, severe chronic low back pain preventing consistent exercise program. Findings: Left L5-S1 subannular herniated nucleus pulposus with significant left S1 nerve compression. Bilateral L4-5 and L5-S1 foraminal stenosis. Procedure in detail: The patient was brought to the operating room and general endotracheal anesthesia induced without difficulty Lines were established per Anesthesia Sequential compression devices were in place The patient was positioned prone on the concentric [place] table with the side bolsters and all extremities appropriately padded Leads for intraoperative neuro monitoring were placed prior to positioning and a baseline study obtained Appropriate timeout procedure was performed with all personnel present and in agreement The lumbar region was shaved with clippers and sterilely prepped and draped Appropriate timeout procedure was performed with all personnel present and in agreement 1% Xylocaine with epinephrine was used for local infiltration over the incision site which was made approximately 6 mm lateral to the midline at the right L4- S1 level. The incision was carried sharply down to the lumbodorsal fascia which was sharply incised Gillette elevator was used for subperiosteal elevation of paraspinous musculature and fascia away from the lamina and spinous processes of L4, L5, and S1 on the right side. The transverse processes at each level were exposed. The deep self-retaining retractor was placed The appropriate levels were verified with intraoperative C-arm The microscope was moved into place and used for the remainder of the procedure including the closure The entry point for the right L4, L5, and S1 pedicle screws were determined by anatomic and radiographic landmarks. The pedicle screw site was prepared with the awl followed by the pedicle finder and the tap. The ball tip probe was used to probe the pedicle screw site to ensure that there was no breakout through the pedicle. The appropriate size pedicle screw was placed at each pedicle screw site. The Spine Wave 6.5 mm diameter pedicle screws were utilized with 40 mm screws at L4 and L5 and a 35 mm screw at S1 on the right side. The screw placement was verified with intraoperative C-arm and intraoperative neural monitoring and felt to be satisfactory. The TPS drill with a 5 mm bone bur followed by the Kerrison rongeur was used to remove the inferior two thirds of the right L4 and L5 lamina as well as the majority of the right L4-5 and L5-S1 facet. Hypertrophied ligamentum flavum was elevated away from the thecal sac and exiting nerve roots with the thin ligament dissector and resected with a 15 blade knife and Kerrison rongeur. The thecal sac and exiting nerve root were freed up from surrounding adhesions with the microdissectors at the L4-5 and L5-S1 level on the right, and gently retracted medially revealing the underlying disc and annulus. There was moderate subannular disc herniation at the right L5-S1 level.. The annulus was incised on the right side at each level with the 11 blade knife and discectomy performed with pituitary biopsy forceps and straight and angled curettes The endplate scrapers were used to decorticate the endplates and any remaining debris was removed with the antibiotic irrigation and suction and pituitary biopsy forceps The appropriate size PEEK cage was packed with retained lamina cancellus autograft and a small amount of demineralized bone matrix. Additional bone graft and DBM was first placed at each level using the funnel and packed firmly along the anterior lateral aspect of the interspace. The cage was placed at the level with a good fit of the cage. The Choice Spine Octane cages were utilized with the 28 x 8 mm lordotic cage at L5-S1 and the 28 x 11 mm lordotic cage at L4-5. The placement was checked under the microscope and with intraoperative C-arm and felt to be satisfactory. The thecal sac and nerve roots were probed with the long blunt nerve hook and felt to be well decompressed The lizbeth was placed across the L4 through S1 pedicle screws on the right side. The locking caps were placed. The locking caps were secured with the torque wrench and anti-torque device The entire construct was checked with intraoperative C-arm and felt to be satisfactory The region was well irrigated with antibiotic irrigation The posterior lateral structures at the right L5--S1 levels were decorticated with the TPS drill The shavings were left in place, to which was added the remaining autograft and allograft bone which was firmly packed in place for the posterior lateral fusion. The 7 mm flat fluted drain was left in place at the operative side and brought out through a incision at the upper lumbar region and secured to the skin with nylon suture and attached to sterile suction bleeding was carefully controlled with the bipolar forceps The closure was performed with 0 Vicryl interrupted for the deep and superficial fascia, with 3-0 Vicryl for the subcutaneous closure and 4-0 Vicryl running subcuticular closure. Dressings sterile Mastisol, Steri-Strips and Primapore was placed The patient was turned into supine position and taken to recovery room in stable condition All counts were correct at the end of the case Estimated blood loss was 600 cc No specimen was sent to pathology Neuro monitoring was stable during the procedure Julian Haider MD Sep 23, 2017 19:01
[2017-09-23] MEDS ORDERED: METHOCARBAMOL 500 MG TAB PO PRN (19:45)
[2017-09-23 20:00] VITALS: BP 151/85; PULSE 73; RESP 18; TEMP 97.9; O2SAT 100
[2017-09-23] MEDS: INSULIN NovoLIN REGULAR SUPPLEMENTAL SCALE SQ SCH (20:58)
[2017-09-23] MEDS: QUEtiapine FUMARATE 100 MG TAB PO SCH (22:03)
[2017-09-23] MEDS: PREGABALIN 75 MG CAP PO SCH (22:03)
[2017-09-23] MEDS: KETOROLAC TROMETHAMINE 30 MG/ML (IVP) VIAL IV PUSH SCH (22:04)
[2017-09-23] MEDS: DOCUSATE SODIUM 100 MG CAP PO SCH (22:04)
[2017-09-23] MEDS: cloNIDine HCL 0.2 MG TAB PO SCH (22:04)
[2017-09-24] VITALS: BP 116/56; PULSE 87; RESP 18; TEMP 98.1; O2SAT 94
[2017-09-24 04:00] VITALS: BP 112/57; PULSE 73; RESP 18; TEMP 98.5; O2SAT 97
[2017-09-24] MEDS: KETOROLAC TROMETHAMINE 30 MG/ML (IVP) VIAL IV PUSH SCH ×3 (05:10→21:16)
[2017-09-24] MEDS: 1/2 NS + KCL 20 MEQ INJ 1,000 ML IV SCH ×2 (05:11→13:11)
[2017-09-24 05:31] LABS: AUTOMATED NEUTROPHIL # 8.6 TH/MM3 (1.8-7.7); BASOPHIL % 0.2 % (0.0-2.0); HEMATOCRIT 33.3 % (39.0-51.0); HEMOGLOBIN 11.2 GM/DL (13.0-17.0); LYMPH % 11.6 % (9.0-44.0); LYMPHOCYTE # 1.2 TH/MM3 (1.0-4.8); MEAN CELL VOLUME 84.7 FL (80.0-100.0); MEAN CORPUSCULAR HEMOGLOBIN 28.4 PG (27.0-34.0); MEAN CORPUSCULAR HGB CONC 33.5 % (32.0-36.0); MEAN PLATELET VOLUME 8.2 FL (7.0-11.0); MONO % 6.2 % (0.0-8.0); MONOCYTE # 0.7 TH/MM3 (0-0.9); PLATELET COUNT 277 TH/MM3 (150-450); RED BLOOD COUNT 3.93 MIL/MM3 (4.50-5.90); RED CELL DISTRIBUTION WIDTH 14.3 % (11.6-17.2); WHITE BLOOD COUNT 10.5 TH/MM3 (4.0-11.0)
[2017-09-24 05:54] LABS: BICARBONATE 24.4 MEQ/L (21.0-32.0); CALCIUM 8.9 MG/DL (8.5-10.1); CREATININE 0.66 MG/DL (0.60-1.30)
[2017-09-24 08:00] VITALS: BP 114/58; PULSE 81; RESP 20; TEMP 98.6; O2SAT 96
[2017-09-24] MEDS: INSULIN NovoLIN REGULAR SUPPLEMENTAL SCALE SQ SCH ×4 (08:00→21:00)
[2017-09-24 10:11] VITALS: O2SAT 98
[2017-09-24] MEDS: PANTOPRAZOLE SOD 40 MG DELAYED RELEASE TAB PO SCH (10:11)
[2017-09-24] MEDS: cloNIDine HCL 0.2 MG TAB PO SCH ×2 (10:11→21:14)
[2017-09-24] MEDS: ACETAMINOPHEN/HYDROcodone 325 MG/5 MG TAB PO PRN ×2 (10:11→13:06)
[2017-09-24] MEDS: PREGABALIN 75 MG CAP PO SCH ×2 (10:11→21:14)
[2017-09-24] MEDS: DOCUSATE SODIUM 100 MG CAP PO SCH ×2 (10:11→21:14)
[2017-09-24] MEDS: GABAPENTIN 400 MG CAP PO SCH ×3 (10:11→16:17)
[2017-09-24] MEDS ORDERED: ADJUSTABLE COMM1 MIS (15:58)
[2017-09-24] MEDS ORDERED: WALKER WHEELS/F1 MIS (15:58)
[2017-09-24 16:00] VITALS: BP 111/52; PULSE 76; RESP 20; TEMP 98.3; O2SAT 98
[2017-09-24] MEDS: oxyCODONE/ACETAMINOPHEN 10 MG/325 MG TAB PO PRN (16:17)
--- NOTE | 2017-09-24 16:57 | RADRPT ---
EXAM DATE: 09/23/2017 5:19 PM EDT AGE/SEX: 37 years / Male INDICATIONS: Lower back pain. CLINICAL DATA: This is the patient's initial encounter. Patient reports that signs and symptoms have been present for 1 day and indicates a pain score of Nonresponsive. MEDICAL/SURGICAL HISTORY: None. None. COMPARISON: No prior [place] exams available for comparison. FINDINGS: 2 films available for interpretation. The lateral film I can not identify with any of the levels CONCLUSION: Lateral film demonstrates multiple intrapedicular screws however I cannot identify any of the level. Electronically signed by: Ian Griffith MD 09/24/2017 4:56 PM EDT
[2017-09-24 20:00] VITALS: BP 124/55; PULSE 73; RESP 18; TEMP 97.7; O2SAT 100
[2017-09-24] MEDS: QUEtiapine FUMARATE 100 MG TAB PO SCH (21:14)
[2017-09-25] VITALS: BP 120/56; PULSE 80; RESP 18; TEMP 97.1; O2SAT 96
[2017-09-25] MEDS: 1/2 NS + KCL 20 MEQ INJ 1,000 ML IV SCH ×3 (00:20→21:52)
[2017-09-25 04:00] VITALS: BP 98/64; PULSE 99; RESP 18; TEMP 98.1; O2SAT 92
[2017-09-25] MEDS: oxyCODONE/ACETAMINOPHEN 10 MG/325 MG TAB PO PRN ×2 (04:24→11:44)
[2017-09-25] MEDS: KETOROLAC TROMETHAMINE 30 MG/ML (IVP) VIAL IV PUSH SCH ×2 (05:17→14:49)
[2017-09-25 08:00] VITALS: BP 125/60; PULSE 75; RESP 15; TEMP 98.1; O2SAT 97
[2017-09-25] MEDS: INSULIN NovoLIN REGULAR SUPPLEMENTAL SCALE SQ SCH ×4 (08:00→21:53)
[2017-09-25] MEDS: PANTOPRAZOLE SOD 40 MG DELAYED RELEASE TAB PO SCH (09:34)
[2017-09-25] MEDS: DOCUSATE SODIUM 100 MG CAP PO SCH ×2 (09:34→21:49)
[2017-09-25] MEDS: PREGABALIN 75 MG CAP PO SCH ×2 (09:34→21:50)
[2017-09-25] MEDS: cloNIDine HCL 0.2 MG TAB PO SCH ×2 (09:34→21:00)
[2017-09-25] MEDS: GABAPENTIN 400 MG CAP PO SCH ×3 (09:34→17:25)
[2017-09-25 12:00] VITALS: BP 115/60; PULSE 73; RESP 18; TEMP 98.4; O2SAT 96
[2017-09-25 16:00] VITALS: BP 114/58; PULSE 76; RESP 18; TEMP 98.2; O2SAT 99
--- NOTE | 2017-09-25 18:24 | HHI.NSPN ---
(Bill Pool) History Chief Complaint: Low back pain and pain to the right thigh. (Bill Pool) Interval History 09/23: The patient presented to [facility] to have a right L4-5 and L5-S1 decompressive semi-laminectomy and foraminotomy with a right L5-S1 discectomy and resection of a herniated nucleus pulposus, followed by an L4-5 and L5-S1 discectomy with an interbody fusion and PEEK cage and a right L4 through S1 posterior instrumentation and posterior lateral fusion with lamina autograft and demineralized bone matrix. Post-operative the patient was admitted to a regular med/surg floor. 09/24: Physical Therapy evaluated the patient and felt that the patient was able to be safely discharged home with outpatient physical therapy. He also recommended a front wheeled walker and a 3-in-1 commode for the patient. 09/25: The patient is awake and alert sitting up in bed watching TV and visiting with his spouse. He complains of pain to the back at the surgical incision. He also reports having pain to the right thigh which is new. He denies any other pain to the lower extremities. He denies any numbness or tingling to the lower extremities. Upon examination the patient has tenderness to palpation over the surgical incision and to the right thigh. His motor strength is essentially normal and he has no sensory deficits to the lower extremities. (Bill Pool) Exam Results 09/24/17 09/24/17 09/25/17 09/25/17 09/26/17 09/26/17 06:00 18:00 06:00 18:00 06:00 18:00 Intake Total 1000 ml 100 ml Output Total 1060 ml 121 ml 901 ml 300 ml Balance -60 ml -121 ml -801 ml -300 ml Intake IV Total 1000 ml 100 ml Output Urine Total 1050 ml 120 ml 900 ml 300 ml Drainage Total 10 ml 1 ml 1 ml # Voids 2 Vital Signs Date Time Temp Pulse Resp B/P (MAP) Pulse Ox O2 Delivery O2 Flow Rate FiO2 09/25/17 06:17 18 6/6/18 05:30 18 09/25/17 04:00 98.1 99 18 98/64 (75) 92 09/25/17 00:00 97.1 80 18 120/56 (77) 96 09/24/17 22:15 18 09/24/17 20:00 97.7 73 18 124/55 (78) 100 09/24/17 16:00 98.3 76 20 111/52 (71) 98 09/24/17 10:11 98 09/24/17 08:00 98.6 81 20 114/58 (76) 96 09/24/17 04:00 98.5 73 18 112/57 (75) 97 09/24/17 00:00 98.1 87 18 116/56 (76) 94 09/23/17 20:45 18 09/23/17 20:45 18 09/23/17 20:44 18 09/23/17 20:00 97.9 73 18 151/85 (107) 100 09/23/17 19:30 72 10 142/80 (100) 96 Room Air 09/23/17 19:15 71 13 163/79 (107) 100 Room Air 09/23/17 18:45 73 13 151/96 (114) 100 Room Air 09/23/17 18:15 97.5 74 18 148/93 (111) 99 Room Air 09/23/17 18:00 81 18 146/91 (109) 96 Room Air 09/23/17 17:45 82 12 135/83 (100) 97 Room Air 09/23/17 17:30 84 17 135/83 (100) 100 Nasal Cannula 4 09/23/17 17:17 97.3 93 26 126/74 (91) 100 Nasal Cannula 4 09/23/17 06:30 98.0 75 20 121/88 (99) 98 (Bill Pool) Physical Examination GENERAL: Awake & alert sitting up in the bed visiting w/family. His affect is normal. He readily interacts. He is not in any distress. HEENT: Normocephalic, atraumatic. MUSCULOSKELETAL: CLARK spontaneously & purposefully. Right thigh mildly TTP but none at or below the knee. LLE NTTP. Midline lumbar spine mildly TTP over the surgical incision, dressing dry & intact, JOEY drain to bulb suction w/ serosanguinous drainage. NEUROLOGICAL: AAOx3. Speech clear & appropriate. Follows simple commands w/o difficulty. Sensation intact to light touch to lower extremities. Motor strength is 4+ to 5/5 to all major flexion & extension muscle groups of the lower extremities except the extensor hallucis longus is 4+/5 on the left and 4 to 4+/5 on the right. (Bill Pool) Lab, Micro, Other Results Recent Impressions Lumbar Spine X-Ray 09/23/17 0000 Signed Impressions: CONCLUSION: Lateral film demonstrates multiple intrapedicular screws however I cannot ident neeraj any of the level. Laboratory Tests Test 09/23/17 06:45 09/23/17 12:15 09/23/17 16:15 09/24/17 04:35 Activated Partial Thromboplast Time 26.1 SEC Blood Gas Puncture Site ART LINE ART LINE Blood Gas Patient Temperature 98.6 98.6 Blood Gas HCO3 26 mmol/L 23 mmol/L Blood Gas Base Excess 2.3 mmol/L -0.8 mmol/L Blood Gas Oxygen Saturation 97 % 97 % Arterial Blood pH 7.48 7.40 Arterial Blood Partial Pressure CO2 35 mmHg 39 mmHg Arterial Blood Partial Pressure O2 254 mmHg 242 mmHg Arterial Blood Oxygen Content 16.1 Vol % 15.5 Vol % Arterial Blood Carboxyhemoglobin 0.9 % 0.8 % Arterial Blood Methemoglobin 1.4 % 1.8 % Blood Gas Hemoglobin 11.3 G/DL 10.9 G/DL Oxygen Delivery Device VENTILATOR VENTILATOR Blood Gas Inspired Oxygen 55 % 50 % White Blood Count 10.5 TH/MM3 Red Blood Count 3.93 MIL/MM3 Hemoglobin 11.2 GM/DL Hematocrit 33.3 % Mean Corpuscular Volume 84.7 FL Mean Corpuscular Hemoglobin 28.4 PG Mean Corpuscular Hemoglobin Concent 33.5 % Red Cell Distribution Width 14.3 % Platelet Count 277 TH/MM3 Mean Platelet Volume 8.2 FL Neutrophils (%) (Auto) 82.0 % Lymphocytes (%) (Auto) 11.6 % Monocytes (%) (Auto) 6.2 % Eosinophils (%) (Auto) 0.0 % Basophils (%) (Auto) 0.2 % Neutrophils # (Auto) 8.6 TH/MM3 Lymphocytes # (Auto) 1.2 TH/MM3 Monocytes # (Auto) 0.7 TH/MM3 Eosinophils # (Auto) 0.0 TH/MM3 Basophils # (Auto) 0.0 TH/MM3 CBC Comment DIFF FINAL Differential Comment Blood Urea Nitrogen 11 MG/DL Creatinine 0.66 MG/DL Random Glucose 112 MG/DL Calcium Level 8.9 MG/DL Sodium Level 144 MEQ/L Potassium Level 4.0 MEQ/L Chloride Level 109 MEQ/L Carbon Dioxide Level 24.4 MEQ/L Anion Gap 11 MEQ/L Estimat Glomerular Filtration Rate 166 ML/MIN (Bill Pool) Medical Decision Making Impression and Plan Impression: Postoperative Diagnosis: (1) Herniated nucleus pulposus, lumbar (2) Degenerative disc disease (3) Chronic radicular lumbar pain (4) Morbid obesity with BMI of 40.0-44.9, adult 1. Lumbar herniated nucleus pulposus 2. Lumbar spondylosis and degenerative disc disease 3. Chronic lumbar radiculopathy 4. Morbid obesity The patient is doing well. He has some surgical site tenderness and new onset right thigh tenderness to palpation. He has no sensory deficits and his muscle strength is essentially normal. JOEY drain output of 2 mL for the past 24 hrs as of shift change this morning. POD #2 () s/p: 1. Right L4-5 and L5-S1 decompressive semi-laminectomy, foraminotomy 2. Right L5-S1 discectomy, resection herniated nucleus pulposus 3. L4-5 and L5-S1 discectomy, interbody fusion, PEEK cage, lamina autograft and demineralized bone matrix. 4. Right L4 through S1 posterior instrumentation 5. Right L4 through S1 posterior lateral fusion with lamina autograft and demineralized bone matrix Plan: Neuro checks q4h. Vital signs q4h. I&O q8h. TLSO brace when OOB. Mobilise patient w/assistance. Physical Therapy eval & tx. Regular diet. D/c JOEY drain. (Bill Pool) Attending Statement Patient with moderate pain. Control mostly with oral medications on 09/25/2017. Patient out of bed, ambulate with physical therapy Tolerating diet Dressings dry Discontinue drain Satisfactory postoperative course. Anticipate home 09/26/2017 (Julian Haider MD) Bill Pool Sep 25, 2017 18:24 Julian Haider MD Sep 26, 2017 14:47
[2017-09-25] MEDS: ACETAMINOPHEN/HYDROcodone 325 MG/5 MG TAB PO PRN ×2 (18:25→23:33)
[2017-09-25 20:00] VITALS: BP 111/55; PULSE 81; RESP 18; TEMP 97.8; O2SAT 97
--- NOTE | 2017-09-25 21:10 | RADRPT ---
EXAM DATE: 09/25/2017 9:00 PM EDT AGE/SEX: 37 years / Male INDICATIONS: Post op lumbar fusion. CLINICAL DATA: This is the patient's initial encounter. Patient reports that signs and symptoms have been present for 3 days and indicates a pain score of 5/10. MEDICAL/SURGICAL HISTORY: Cardiovascular disease. Hypertension. Gastroesophageal reflux disease. Arthritis, asthma. Cholecystectomy. Gastric bypass. RADIATION DOSE: 39.44 CTDI (mGy) ; Patient body habitus COMPARISON: None. TECHNIQUE: Contiguous axial images were acquired with a multirow detector CT scanner without contras t. Multiplanar reconstructions in the sagittal and coronal plane were also performed. Using automate d exposure control and adjustment of the mA and/or kV according to patient size, radiation dose was k ept as low as reasonably achievable to obtain optimal diagnostic quality images. FINDINGS: The patient's body habitus limits the study somewhat. Vertebrae: Right unilateral transpedicular posterior fixation with intervening bone graft devices in volving L4, L5, and S1.. Bone graft device is are in good position. There is a surgical drain associa rosangela with the dorsal soft tissues just to the right of midline. No fluid collection observed. Mild str anding of the subcutaneous fat. Vertebral body heights are maintained. Alignment: Normal. No subluxation. T12-L1: The thecal sac has a normal diameter. No evidence of disc bulge or protrusion. The neural foramina are patent bilaterally. L1-L2: The thecal sac has a normal diameter. No evidence of disc bulge or protrusion. The neural f oramina are patent bilaterally. L2-L3: The thecal sac has a normal diameter. No evidence of disc bulge or protrusion. The neural f oramina are patent bilaterally. L3-L4: There is streak artifact from the orthopedic hardware. The central canal appears grossly hood nt as do the neural foramen. L4-L5: Streak artifact from the orthopedic hardware is noted. Right laminectomy changes. The central canal appears grossly patent as do the neural foramen. L5-S1: Streak artifact from the orthopedic hardware is noted. Right laminectomy changes. The central canal appears grossly patent as do the neural foramen. CONCLUSION: 1. Patient's body habitus limits the study. 2. Right unilateral posterior fixation extending from L4 to S1 with bone graft device is in good pos ition. Laminectomy changes noted on the right. Beam hardening artifact limits the evaluation of these levels but the central canal appears grossly patent. 3. Surgical drain without surrounding fluid. Electronically signed by: Pato Pena MD 09/25/2017 9:09 PM EDT
[2017-09-25] MEDS: QUEtiapine FUMARATE 100 MG TAB PO SCH (23:33)
[2017-09-26] VITALS: BP 109/53; PULSE 88; RESP 18; TEMP 98.8; O2SAT 99
[2017-09-26 04:00] VITALS: BP 125/55; PULSE 78; RESP 18; TEMP 98.7; O2SAT 97
[2017-09-26] MEDS: oxyCODONE/ACETAMINOPHEN 10 MG/325 MG TAB PO PRN ×2 (04:58→10:19)
[2017-09-26] MEDS: 1/2 NS + KCL 20 MEQ INJ 1,000 ML IV SCH (05:14)
[2017-09-26 08:00] VITALS: BP 102/52; PULSE 72; RESP 18; TEMP 98; O2SAT 97
[2017-09-26] MEDS: GABAPENTIN 400 MG CAP PO SCH ×2 (08:55→12:13)
[2017-09-26] MEDS: cloNIDine HCL 0.2 MG TAB PO SCH (08:56)
[2017-09-26] MEDS: ACETAMINOPHEN/HYDROcodone 325 MG/5 MG TAB PO PRN ×2 (08:56→12:13)
[2017-09-26] MEDS: INSULIN NovoLIN REGULAR SUPPLEMENTAL SCALE SQ SCH ×2 (08:56→12:13)
[2017-09-26] MEDS: DOCUSATE SODIUM 100 MG CAP PO SCH (08:56)
[2017-09-26] MEDS: PANTOPRAZOLE SOD 40 MG DELAYED RELEASE TAB PO SCH (08:56)
[2017-09-26] MEDS: PREGABALIN 75 MG CAP PO SCH (08:57)
[2017-09-26] MEDS ORDERED: HYDR-3583 PO (13:58)
[2017-09-26] MEDS ORDERED: DILA2TAB4 PO (13:58)
--- NOTE | 2017-09-26 13:59 | HHI.DCPOC ---
Discharge Care Plan Diagnosis: (1) Herniated nucleus pulposus, lumbar (2) Chronic radicular lumbar pain Your Health Problems Are: Difficulty with ADL Incision/Drains Exercise Tolerance Loss of Movements Chronic Pain Goals to Promote Your Health * To prevent worsening of your condition and complications * To maintain your health at the optimal level Directions to Meet Your Goals Take your medications as prescribed Follow your dietary instruction Follow activity as directed Keep your appointments as scheduled Take your immunizations and boosters as scheduled If your symptoms worsen call your PCP, if no PCP go to Urgent Care Center or Emergency Room Smoking is Dangerous to Your Health. Avoid second hand smoke Call the 24-hour hour crisis hotline for domestic abuse at Julian Haider MD Sep 26, 2017 13:59
--- NOTE | 2017-09-26 14:11 | HHI.DS ---
Discharge Summary Admission Date Sep 23, 2017 at 05:59 Discharge Date: Sep 26, 2017 Admitting Diagnosis Chronic lumbar radiculopathy lumbar disc herniation Chronic low back pain (1) Chronic radicular lumbar pain Diagnosis: Principal ICD Code: M54.16 - Radiculopathy, lumbar region; G89.29 - Other chronic pain Status: Acute (2) Herniated nucleus pulposus, lumbar Diagnosis: Secondary ICD Code: M51.26 - Other intervertebral disc displacement, lumbar region (3) Chronic pain Diagnosis: Secondary ICD Code: G89.29 - Other chronic pain Status: Acute Procedures 09/23/2017: Right L4-5, L5-S1 laminectomy, discectomy, interbody fusion, posterior instrumentation CBC/BMP: 09/24/17 0435 09/24/17 0435 Significant Findings Laboratory Tests Test 09/23/17 16:15 09/24/17 04:35 Arterial Blood Partial Pressure O2 242 mmHg (61-120) Blood Gas Hemoglobin 10.9 G/DL (12.0-16.0) Red Blood Count 3.93 MIL/MM3 (4.50-5.90) Hemoglobin 11.2 GM/DL (13.0-17.0) Hematocrit 33.3 % (39.0-51.0) Neutrophils (%) (Auto) 82.0 % (16.0-70.0) Neutrophils # (Auto) 8.6 TH/MM3 (1.8-7.7) Random Glucose 112 MG/DL (74-106) Chloride Level 109 MEQ/L (98-107) Imaging Last Impressions Lumbar Spine CT 09/25/17 0000 Signed Impressions: CONCLUSION: 1. Patient's body habitus limits the study. 2. Right unilateral posterior fixation extending from L4 to S1 with bone graft device is in good position. Laminectomy changes noted on the right. Beam harde aaron artifact limits the evaluation of these levels but the central canal appea rs grossly patent. 3. Surgical drain without surrounding fluid. Lumbar Spine X-Ray 09/23/17 0000 Signed Impressions: CONCLUSION: Lateral film demonstrates multiple intrapedicular screws however I cannot ident neeraj any of the level. PE at Discharge Dressings dry Lower extremity sensorimotor examination intact Hospital Course Admitted for the above-noted procedure performed without complication. Progressed well in physical therapy postoperative. Postoperative CT scan satisfactory. Right thigh discomfort present initially postoperative nearly resolved at the time of discharge. Pt Condition on Discharge: Good Discharge Disposition: Disch w/ Home Health Serv Discharge Instructions DIET: Follow Instructions for: As Tolerated, No Restrictions ACTIVITIES You can perform: Weight Bearing As Brandon Activities to Avoid: Lifting/Bending, Strenuous Activity ADDITIONAL Activity Instructio: TLSO when OOB Follow up Referrals: Home Health Neurosurgery - 10/03/17 with Julian Haider MD Follow up for a wound check as scheduled. New Medications: Adjustable Commode 3-in-1 (Adjustable Commode 3-in-1) 1 Mis Mis EA .XX DIRECTED, #1 Hydrocodone/Acetaminophen (Hydrocodone-Acetamin 10-325 mg) 10 Mg-325 Mg Tablet 1 TAB PO Q4HR for Pain, #90 TAB 0 Refills Hydromorphone (Dilaudid) 2 Mg Tab 2 MG PO Q6H PRN for brk, #60 TAB 0 Refills Walker with Front Wheels (Walker with Front Wheels) 1 Mis Mis EA .XX DIRECTED, #1 0 Refills Continued Medications: Clonidine (Clonidine) 0.2 Mg Tab 0.2 MG PO BID for Blood Pressure Management, TAB 0 Refills Gabapentin (Gabapentin) 400 Mg Cap 400 CAP PO TID, #90 CAP 3 Refills Ondansetron Odt (Zofran Odt) 4 Mg Tab 4 MG SL Q6HR PRN for Nausea/Vomiting, #10 TAB 0 Refills Oxycodone-Acetaminophen (Percocet) 7.5-325 mg Tab 1 TAB PO Q6H PRN for PAIN, TAB 0 Refills Pantoprazole (Protonix) 40 Mg Tab 40 MG PO DAILY for Reflux, #30 TAB 0 Refills Pregabalin (Lyrica) 150 Mg Cap 150 MG PO BID, #60 CAP 0 Refills Promethazine (Phenergan) 25 Mg Tablet 25 MG PO Q6H PRN for NAUSEA OR VOMITING, #10 TAB 0 Refills Quetiapine (Seroquel) 100 Mg Tab 150 MG PO HS, TAB 0 Refills Julian Haider MD Sep 26, 2017 14:11
--- NOTE | 2017-09-26 14:17 | HHI.FF ---
Face to Face Verification Diagnosis: (1) Morbid obesity with BMI of 40.0-44.9, adult (2) Chronic radicular lumbar pain Home Health Nursing Order: Wound care and dressing changes Instructions: Assist lumbar wound healing. Patient is to avoid lying flat on back, position on sides only. Dressing changes needed lumbar wound. Lumbar wound to remain dry 7 days then may remove outer dressing and take shower and let Steri-Strips fall off on their own. I have seen patient Jean-Pierre Crooksyoon Healy Sr on 09/26/17. My clinical findings support the need for the requested home health care services because: Ltd mobility - disease progression Deconditioned w/ increased weakness Limited ability to care for self High risk of falls I certify that my clinical findings support that this patient is homebound because: Unsteady gait/balance Unsafe to leave home unassisted Julian Haider MD Sep 26, 2017 14:17
--- NOTE | 2017-09-26 14:49 | HHI.NSPN ---
History Chief Complaint: Low back pain and pain to the right thigh. Interval History Patient pain continues to improve on 09/26/2017 Ambulating well with therapy Tolerating diet Review of Systems General: Negative for: fever, insomnia Respiratory: Negative for: shortness of breath Cardiovascular: Negative for: chest pain Gastrointestinal: Negative for: nausea, vomitting, constipation Exam Results Vital Signs Date Time Temp Pulse Resp B/P (MAP) Pulse Ox O2 Delivery O2 Flow Rate FiO2 09/26/17 08:00 98.0 72 18 102/52 (69) 97 09/23/17 19:30 Room Air 09/23/17 17:30 4 Physical Examination GENERAL: Awake & alert sitting up in the bed visiting w/family. His affect is normal. He readily interacts. He is not in any distress. HEENT: Normocephalic, atraumatic. MUSCULOSKELETAL: CLARK spontaneously & purposefully. Right thigh mildly TTP but none at or below the knee. LLE NTTP. Midline lumbar spine mildly TTP over the surgical incision, dressing dry & intact, JOEY drain to bulb suction w/ serosanguinous drainage. NEUROLOGICAL: AAOx3. Speech clear & appropriate. Follows simple commands w/o difficulty. Sensation intact to light touch to lower extremities. Motor strength is 4+ to 5/5 to all major flexion & extension muscle groups of the lower extremities Lab, Micro, Other Results Last 48 [address] 09/25/17 0000 Signed Impressions: CONCLUSION: 1. Patient's body habitus limits the study. 2. Right unilateral posterior fixation extending from L4 to S1 with bone graft device is in good position. Laminectomy changes noted on the right. Beam harde aaron artifact limits the evaluation of these levels but the central canal appea rs grossly patent. 3. Surgical drain without surrounding fluid. Medical Decision Making Impression and Plan Impression: 1. Doing well postop. Pain continues to diminish. Initial discomfort right anterolateral thigh has mostly resolved. Postoperative CT scan reviewed. Pedicle screws in good position. Interbody cages in good position Good decompression Plan: Discussed with patient CT scan images reviewed with him He is comfortable going home today. Home nursing care for wound checks Exercises discussed Follow-up appointment 7-10 days Wound care discussed. Activity precautions discussed Julian Haider MD Sep 26, 2017 14:49
[2017-09-26 16:00] VITALS: BP 139/69; PULSE 83; RESP 18; TEMP 98.2; O2SAT 99
== END 2017-09-26 17:15 | disposition home health service (06) | DRG 454 ==
LOC: HSDI 05:59 → N05A 20:07
PROVIDERS: ADMIT Neurological Surgery; ATTEND Neurological Surgery
PROC: 0SG00J1 Fusion of Lumbar Vertebral Joint with Synthetic Substitute, Posterior Approach, Posterior Column, Open Approach (ICD-10-PCS; 2017-09-23)
PROC: 0SG30AJ Fusion of Lumbosacral Joint with Interbody Fusion Device, Posterior Approach, Anterior Column, Open Approach (ICD-10-PCS; 2017-09-23)
PROC: 0SG30J1 Fusion of Lumbosacral Joint with Synthetic Substitute, Posterior Approach, Posterior Column, Open Approach (ICD-10-PCS; 2017-09-23)
PROC: 0SB20ZZ Excision of Lumbar Vertebral Disc, Open Approach (ICD-10-PCS; 2017-09-23)
PROC: 0SB40ZZ Excision of Lumbosacral Disc, Open Approach (ICD-10-PCS; 2017-09-23)
PROC: 0SG00AJ Fusion of Lumbar Vertebral Joint with Interbody Fusion Device, Posterior Approach, Anterior Column, Open Approach (ICD-10-PCS; principal; 2017-09-23 08:26)
DX: M47.26 Other spondylosis with radiculopathy, lumbar region (principal); Z68.43 Body mass index [BMI] 50.0-59.9, adult; I10 Essential (primary) hypertension; E66.01 Morbid (severe) obesity due to excess calories; M51.16 Intervertebral disc disorders with radiculopathy, lumbar region; G89.29 Other chronic pain; G47.30 Sleep apnea, unspecified; K21.9 Gastro-esophageal reflux disease without esophagitis; M48.07 Spinal stenosis, lumbosacral region; M79.651 Pain in right thigh; J45.909 Unspecified asthma, uncomplicated; F41.9 Anxiety disorder, unspecified; F32.9 Major depressive disorder, single episode, unspecified; E05.90 Thyrotoxicosis, unspecified without thyrotoxic crisis or storm; M79.7 Fibromyalgia; M17.0 Bilateral primary osteoarthritis of knee; Z98.84 Bariatric surgery status
CPT/HCPCS: 72020; 72131; 76000; 80048; 82805; 82948; 85025; 85730; 86850; 86900; 86901; 86920; 94150; C1713; C9290; J0131; J0690; J1100; J1580; J1644; J1885; J2250; J2270; J2370; J2405; J3010; J7040; J7050; J7120; L0200; L0484